=== PATIENT | male | born 1950 | race Caucasian/White ===

== ENCOUNTER 2022-01-04 20:00 | Emergency (ER) | payer MEDICARE ==
[2022-01-04 20:34] VITALS: RESP 16
[2022-01-04 21:38] LABS: Basophils % (A) 0 %; Eosinophils # (A) 0.1 k/uL (0-0.7); Eosinophils % (A) 1 %; HCT 43.2 % (39.0-53.0); HGB 14.7 gm/dL (13.0-17.5); Lymphocytes # (A) 2.5 k/uL (1.0-4.8); Lymphocytes % (A) 29 %; MCH 32.8 pg (25.0-35.0); MCV 96.3 fL (80.0-100.0); Mean Platelet Volume 9.2; Monocytes # (A) 0.7 k/uL (0-1.0); Monocytes % (A) 8 %; Neutrophils # (A) 5.2 k/uL (1.3-7.7); Neutrophils % (A) 59 %; Platelet Count 170 k/uL (150-450); RBC 4.48 m/uL (4.30-5.90); WBC 8.7 k/uL (3.8-10.6)
[2022-01-04 21:47] LABS: Albumin 4.4 g/dL (3.5-5.0); Calcium 10.5 mg/dL (8.4-10.2); Magnesium 1.9 mg/dL (1.6-2.3); Potassium 4.8 mmol/L (3.5-5.1); Total Bilirubin 0.9 mg/dL (0.2-1.3); Total Protein 7.2 g/dL (6.3-8.2)
--- NOTE | 2022-01-04 21:47 | ED ---
URI HPI - General Chief Complaint: Upper Respiratory Infection Stated Complaint: SOB Time Seen by Provider: 01/04/22 20:49 Source: patient, RN notes reviewed Mode of arrival: wheelchair Limitations: no limitations - History of Present Illness Initial Comments: This pleasant 71-year-old male who states he went to urgent care 2 weeks ago and was treated with Zithromax and a five-day course of prednisone. Patient states he had COVID-19 testing done there but was never given the results. Patient states he continues to have a lingering cough and a sensation of shortness of breath since this happened. Patient denying any pain. Denies any fever or ch ills. Mild cough without production. No headache, no fever or chills, no changes in vision or hearing, no sore throat or difficulty with speech, no neck pain, no chest pain or shortness of breath, n o abdominal pain, no nausea or vomiting, no changes in urination or bowel movements, no numbness or tingling, no extremity pain, no skin rashes or lesions. Past medical, surgical, social, and family history reviewed. Nonsmoker, no history of lung pathology. - Related Data Previous Rx's Medication Instructions Recorded Ibuprofen [Motrin] 800 mg PO Q6HR PRN #20 tab 05/05/15 Orphenadrine [Norflex] 100 mg PO Q12H #7 tablet.er 05/05/15 Albuterol Inhaler [Ventolin Hfa 2 puff INHALATION Q4HR PRN #1 each 01/04/22 Inhaler] Allergies Allergy/AdvReac Type Severity Reaction Status Date / Time No Known Allergies Allergy Verified 01/04/22 20:25 Review of Systems ROS Statement: Those systems with pertinent positive or pertinent negative responses have been documented in the HPI. ROS Other: All systems not noted in ROS Statement are negative. Past Medical History Past Medical History: No Reported History History of Any Multi-Drug Resistant Organisms: None Reported Additional Past Surgical History / Comment(s): hernia operation Past Psychological History: No Psychological Hx Reported Smoking Status: Never smoker Past Alcohol Use History: Rare Past Drug Use History: None Reported General Exam - General Exam Comments Initial Comments: Patient does not appear to be in any significant distress. Vital signs stable, patient afebrile. SpO2 on room air is 100%. Limitations: no limitations General appearance: alert, in no apparent distress Head exam: Present: atraumatic, normocephalic, normal inspection Eye exam: Present: normal appearance, PERRL, EOMI. Absent: scleral icterus, conjunctival injection, periorbital swelling ENT exam: Present: normal exam, normal oropharynx, mucous membranes moist, TM's normal bilaterally, normal external ear exam. Absent: mucous membranes dry Neck exam: Present: normal inspection, full ROM. Absent: tenderness, meningismus, lymphadenopathy Respiratory exam: Present: normal lung sounds bilaterally. Absent: respiratory distress, wheezes, rales, rhonchi, stridor, chest wall tenderness, accessory muscle use, decreased breath sounds, prolonged expiratory Cardiovascular Exam: Present: regular rate, normal rhythm, normal heart sounds. Absent: systolic murmur, diastolic murmur, rubs, gallop, clicks GI/Abdominal exam: Present: soft, normal bowel sounds. Absent: distended, tenderness, guarding, rebound, rigid Extremities exam: Present: normal inspection, full ROM, normal capillary refill. Absent: tenderness, pedal edema, joint swelling, calf tenderness Back exam: Present: normal inspection Neurological exam: Present: alert, oriented X3, CN II-XII intact Psychiatric exam: Present: normal affect, normal mood Skin exam: Present: warm, dry, intact, normal color. Absent: rash Course Vital Signs 01/04/22 01/04/22 01/04/22 20:21 20:32 21:29 Temperature 97.3 F L 98.4 F Pulse Rate 69 62 56 L Respiratory 18 16 16 Rate Blood Pressure 134/67 131/68 O2 Sat by Pulse 99 100 98 Oximetry 01/04/22 01/04/22 21:44 22:28 Temperature Pulse Rate 61 60 Respiratory 16 16 Rate Blood Pressure 131/88 117/67 O2 Sat by Pulse 100 Oximetry - Reevaluation(s) Reevaluation #1: 01/04/22 23:40 Reevaluation, patient in no distress, patient's workup is essentially negative. D-dimer also negative. Suspect the patient has postinflammatory lung inflammation. We'll try albuterol inhaler. Patient does inform me he is on lisinopril which she received from the dentist office. Patient currently has no PCP. Patient blood pressure here was normal. I told him that he needs to obtain a primary care physician. Patient concurs. Medical Decision Making - Medical Decision Making Patient's age symptomology we will run a general workup to include chest x-ray, blood work, EKG. Plan for reevaluation and likely discharge. Patient was told to return to the ER for any signs or symptoms worsen. Told to return immediately if any other problems arise. All questions answered. Treatment plan discussed. Patient in agreement Every effort has been made to ensure accuracy of this dictation. However, due to the limitations of electronic medical records and dictation devices, errors in charting still occur. House Calls Nurse Practitioner Dr. Dueñas - Lab Data Result diagrams: 01/04/22 21:28 01/04/22 21:28 Lab Results 01/04/22 01/04/22 01/04/22 Range/Units 20:10 21:28 21:28 WBC 8.7 (3.8-10.6) k/uL RBC 4.48 (4.30-5.90) m/uL Hgb 14.7 (13.0-17.5) gm/dL Hct 43.2 (39.0-53.0) % MCV 96.3 (80.0-100.0) fL MCH 32.8 (25.0-35.0) pg MCHC 34.0 (31.0-37.0) g/dL RDW 12.0 (11.5-15.5) % Plt Count 170 (150-450) k/uL MPV 9.2 Neutrophils % 59 % Lymphocytes % 29 % Monocytes % 8 % Eosinophils % 1 % Basophils % 0 % Neutrophils # 5.2 (1.3-7.7) k/uL Lymphocytes # 2.5 (1.0-4.8) k/uL Monocytes # 0.7 (0-1.0) k/uL Eosinophils # 0.1 (0-0.7) k/uL Basophils # 0.0 (0-0.2) k/uL APTT 26.1 (22.0-30.0) sec D-Dimer 0.25 (<0.60) mg/L FEU Sodium (137-145) mmol/L Potassium (3.5-5.1) mmol/L Chloride (98-107) mmol/L Carbon Dioxide (22-30) mmol/L Anion Gap mmol/L BUN (9-20) mg/dL Creatinine (0.66-1.25) mg/dL Est GFR (CKD-EPI)AfAm (>60 ml/min/1.73 sqM) Est GFR (CKD-EPI)NonAf (>60 ml/min/1.73 sqM) Glucose (74-99) mg/dL Calcium (8.4-10.2) mg/dL Magnesium (1.6-2.3) mg/dL Total Bilirubin (0.2-1.3) mg/dL AST (17-59) U/L ALT (4-49) U/L Alkaline Phosphatase (38-126) U/L Troponin I (0.000-0.034) ng/mL NT-Pro-B Natriuret Pep pg/mL Total Protein (6.3-8.2) g/dL Albumin (3.5-5.0) g/dL Coronavirus (PCR) Not Detected (Not Detectd) 01/04/22 01/04/22 01/04/22 Range/Units 21:28 21:28 21:28 WBC (3.8-10.6) k/uL RBC (4.30-5.90) m/uL Hgb (13.0-17.5) gm/dL Hct (39.0-53.0) % MCV (80.0-100.0) fL MCH (25.0-35.0) pg MCHC (31.0-37.0) g/dL RDW (11.5-15.5) % Plt Count (150-450) k/uL MPV Neutrophils % % Lymphocytes % % Monocytes % % Eosinophils % % Basophils % % Neutrophils # (1.3-7.7) k/uL Lymphocytes # (1.0-4.8) k/uL Monocytes # (0-1.0) k/uL Eosinophils # (0-0.7) k/uL Basophils # (0-0.2) k/uL APTT (22.0-30.0) sec D-Dimer (<0.60) mg/L FEU Sodium 137 (137-145) mmol/L Potassium 4.8 (3.5-5.1) mmol/L Chloride 102 (98-107) mmol/L Carbon Dioxide 26 (22-30) mmol/L Anion Gap 9 mmol/L BUN 15 (9-20) mg/dL Creatinine 0.99 (0.66-1.25) mg/dL Est GFR (CKD-EPI)AfAm 89 (>60 ml/min/1.73 sqM) Est GFR (CKD-EPI)NonAf 77 (>60 ml/min/1.73 sqM) Glucose 87 (74-99) mg/dL Calcium 10.5 H (8.4-10.2) mg/dL Magnesium 1.9 (1.6-2.3) mg/dL Total Bilirubin 0.9 (0.2-1.3) mg/dL AST 40 (17-59) U/L ALT 17 (4-49) U/L Alkaline Phosphatase 68 (38-126) U/L Troponin I <0.012 (0.000-0.034) ng/mL NT-Pro-B Natriuret Pep 32 pg/mL Total Protein 7.2 (6.3-8.2) g/dL Albumin 4.4 (3.5-5.0) g/dL Coronavirus (PCR) (Not Detectd) - EKG Data -: EKG Interpreted by Me (EKG done at 2121 revealed sinus bradycardia with a rate of 55. ) - Radiology Data Radiology results: report reviewed, image reviewed Disposition Clinical Impression: Shortness of breath Narrative: Postviral lung inflammation Disposition: HOME SELF-CARE Condition: Good Instructions (If sedation given, give patient instructions): Acute Bronchitis (ED) Additional Instructions: Follow-up with your regular physician as directed. Return to the ER immediately if any symptoms worsen, new symptoms arise, or any other problems develop. Albuterol, 2 puffs every 4 hours as needed. Make sure you call in the morning to schedule an appointment with the primary care physician. Is patient prescribed a controlled substance at d/c from ED?: No Referrals: None,Stated [Primary Care Provider] - 1-2 days Time of Disposition: 23:42
[2022-01-04 21:59] LABS: Partial Thromboplastin Time 26.1 sec (22.0-30.0)
--- NOTE | 2022-01-04 22:10 | XR ---
EXAMINATION TYPE: XR chest 1V portable DATE OF EXAM: 01/04/2022 9:41 PM COMPARISON: None TECHNIQUE: XR chest 1V portable Frontal view of the chest. CLINICAL INDICATION:Male, 71 years old with history of Dyspnea; FINDINGS: Lungs/Pleura: There is no evidence of pleural effusion, focal consolidation, or pneumothorax. Pulmonary vascularity: Unremarkable. Heart/mediastinum: Cardiomediastinal silhouette is unremarkable. Musculoskeletal: No acute osseous pathology. IMPRESSION: No acute cardiopulmonary disease/process.
[2022-01-04 22:29] VITALS: PULSE 60
[2022-01-04 23:48] VITALS: BP 125/78; TEMP 98
== END 2022-01-04 23:48 | disposition home or self-care (01) ==
LOC: EC 20:00
DX: R06.02 Shortness of breath (principal); Z79.51 Long term (current) use of inhaled steroids; Z20.822 Contact with and (suspected) exposure to COVID-19
CPT/HCPCS: 36415; 71045; 80053; 83735; 83880; 84484; 85025; 85379; 85730; 87635; 93005; 99285

== ENCOUNTER 2022-01-31 15:15 | Inpatient (IN) | payer MEDICARE ==
--- NOTE | 2022-01-31 15:38 | ED ---
General Adult HPI - General Chief complaint: Chest Pain Stated complaint: chest pain Time Seen by Provider: 01/31/22 15:21 Source: patient, RN notes reviewed Mode of arrival: EMS Limitations: no limitations - History of Present Illness Initial comments: Patient is a pleasant 71-year-old male presenting to the emergency department with concerns with chest discomfort. Onset of symptoms was around 9:00 this morning and was somewhat severe at that time rated around 8/10. Discomfort has improved and is currently rated 4/10. Patient did receive aspirin and nitroglycerin by EMS with some improvement of symptoms. Patient did feel sweaty. Discomfort felt like tightness or burning. Patient did have associated dyspnea. Those symptoms have all improved. No nausea or vomiting. No history of similar symptoms previously - Related Data Previous Rx's Medication Instructions Recorded Ibuprofen [Motrin] 800 mg PO Q6HR PRN #20 tab 05/05/15 Orphenadrine [Norflex] 100 mg PO Q12H #7 tablet.er 05/05/15 Albuterol Inhaler [Ventolin Hfa 2 puff INHALATION Q4HR PRN #1 each 01/04/22 Inhaler] Allergies Allergy/AdvReac Type Severity Reaction Status Date / Time No Known Allergies Allergy Verified 01/31/22 15:24 Review of Systems ROS Statement: Those systems with pertinent positive or pertinent negative responses have been documented in the HPI. ROS Other: All systems not noted in ROS Statement are negative. Constitutional: Denies: fever Eyes: Denies: eye pain ENT: Denies: ear pain Respiratory: Reports: as per HPI. Denies: cough Cardiovascular: Reports: as per HPI, chest pain Endocrine: Denies: fatigue Gastrointestinal: Denies: abdominal pain, vomiting Genitourinary: Denies: dysuria Musculoskeletal: Denies: back pain Skin: Denies: rash Neurological: Denies: weakness Past Medical History Past Medical History: Hypertension History of Any Multi-Drug Resistant Organisms: None Reported Additional Past Surgical History / Comment(s): hernia operation Past Psychological History: No Psychological Hx Reported Smoking Status: Never smoker Past Alcohol Use History: Rare Past Drug Use History: None Reported General Exam Limitations: no limitations General appearance: alert, in no apparent distress Head exam: Present: normocephalic Eye exam: Present: normal appearance Neck exam: Present: normal inspection Respiratory exam: Present: normal lung sounds bilaterally. Absent: chest wall tenderness Cardiovascular Exam: Present: regular rate, normal rhythm, normal heart sounds Expanded Peripheral pulses: 2+: Radial (R), Radial (L), Posterior Tibialis (R), Posterior Tibialis (L) GI/Abdominal exam: Present: soft. Absent: tenderness Extremities exam: Present: normal inspection. Absent: pedal edema, calf tenderness Neurological exam: Present: alert Psychiatric exam: Present: normal affect, normal mood Skin exam: Present: normal color Course Vital Signs 01/31/22 01/31/22 01/31/22 15:16 15:26 16:06 Temperature 98.5 F Pulse Rate 60 61 Pulse Rate [ 60 Lace Cutter ] Respiratory 18 18 Rate Blood Pressure 134/76 134/74 O2 Sat by Pulse 98 96 Oximetry 01/31/22 01/31/22 16:11 16:14 Temperature Pulse Rate 62 60 Pulse Rate [ Lace Cutter ] Respiratory 18 18 Rate Blood Pressure 130/71 134/72 O2 Sat by Pulse 97 97 Oximetry - Reevaluation(s) Reevaluation #1: 01/31/22 15:42 Cardiology has been paged. 01/31/22 15:46 Repeat EKG shows atrial rhythm rate 83. Left axis. Right bundle branch block appearance. Septal Q waves. Nonspecific ST-T. Interpreted by myself. 01/31/22 16:04 Case was again discussed with cardiology who did review EKGs and will take patient to the Mortgage Coordinator. 01/31/22 16:22 Dr. Quinn has been paged for admission. EKG Findings - EKG Results: EKG: interpreted by ERMD (Left axis. Low QRS voltage. Inferior Q waves with borderline ST change.), sinus rhythm Medical Decision Making - Lab Data Result diagrams: 01/31/22 15:41 01/31/22 15:41 Lab Results 01/31/22 01/31/22 01/31/22 Range/Units 15:41 15:41 15:41 WBC 6.2 (3.8-10.6) k/uL RBC 4.17 L (4.30-5.90) m/uL Hgb 13.6 (13.0-17.5) gm/dL Hct 39.3 (39.0-53.0) % MCV 94.1 (80.0-100.0) fL MCH 32.5 (25.0-35.0) pg MCHC 34.6 (31.0-37.0) g/dL RDW 12.5 (11.5-15.5) % Plt Count 147 L (150-450) k/uL MPV 9.4 Neutrophils % 69 % Lymphocytes % 18 % Monocytes % 9 % Eosinophils % 1 % Basophils % 0 % Neutrophils # 4.3 (1.3-7.7) k/uL Lymphocytes # 1.1 (1.0-4.8) k/uL Monocytes # 0.6 (0-1.0) k/uL Eosinophils # 0.1 (0-0.7) k/uL Basophils # 0.0 (0-0.2) k/uL PT 10.7 (9.0-12.0) sec INR 1.0 (<1.2) APTT 25.9 (22.0-30.0) sec D-Dimer 0.26 (<0.60) mg/L FEU Sodium 137 (137-145) mmol/L Potassium 4.5 (3.5-5.1) mmol/L Chloride 107 (98-107) mmol/L Carbon Dioxide 24 (22-30) mmol/L Anion Gap 6 mmol/L BUN 17 (9-20) mg/dL Creatinine 0.81 (0.66-1.25) mg/dL Est GFR (CKD-EPI)AfAm >90 (>60 ml/min/1.73 sqM) Est GFR (CKD-EPI)NonAf >90 (>60 ml/min/1.73 sqM) Glucose 109 H (74-99) mg/dL Calcium 10.2 (8.4-10.2) mg/dL Magnesium 1.8 (1.6-2.3) mg/dL Total Bilirubin 0.8 (0.2-1.3) mg/dL AST 28 (17-59) U/L ALT 13 (4-49) U/L Alkaline Phosphatase 78 (38-126) U/L Troponin I (0.000-0.034) ng/mL NT-Pro-B Natriuret Pep pg/mL Total Protein 6.7 (6.3-8.2) g/dL Albumin 4.1 (3.5-5.0) g/dL 01/31/22 01/31/22 Range/Units 15:41 15:41 WBC (3.8-10.6) k/uL RBC (4.30-5.90) m/uL Hgb (13.0-17.5) gm/dL Hct (39.0-53.0) % MCV (80.0-100.0) fL MCH (25.0-35.0) pg MCHC (31.0-37.0) g/dL RDW (11.5-15.5) % Plt Count (150-450) k/uL MPV Neutrophils % % Lymphocytes % % Monocytes % % Eosinophils % % Basophils % % Neutrophils # (1.3-7.7) k/uL Lymphocytes # (1.0-4.8) k/uL Monocytes # (0-1.0) k/uL Eosinophils # (0-0.7) k/uL Basophils # (0-0.2) k/uL PT (9.0-12.0) sec INR (<1.2) APTT (22.0-30.0) sec D-Dimer (<0.60) mg/L FEU Sodium (137-145) mmol/L Potassium (3.5-5.1) mmol/L Chloride (98-107) mmol/L Carbon Dioxide (22-30) mmol/L Anion Gap mmol/L BUN (9-20) mg/dL Creatinine (0.66-1.25) mg/dL Est GFR (CKD-EPI)AfAm (>60 ml/min/1.73 sqM) Est GFR (CKD-EPI)NonAf (>60 ml/min/1.73 sqM) Glucose (74-99) mg/dL Calcium (8.4-10.2) mg/dL Magnesium (1.6-2.3) mg/dL Total Bilirubin (0.2-1.3) mg/dL AST (17-59) U/L ALT (4-49) U/L Alkaline Phosphatase (38-126) U/L Troponin I 0.071 H* (0.000-0.034) ng/mL NT-Pro-B Natriuret Pep 81 pg/mL Total Protein (6.3-8.2) g/dL Albumin (3.5-5.0) g/dL - Radiology Data Interpreted by me: Chest x-ray reveals no acute process Critical Care Time Critical Care Time: Yes Total Critical Care Time: 31 Disposition Clinical Impression: ST elevation myocardial infarction (STEMI) Disposition: ADMITTED IP TO THIS HOSP Condition: Serious Is patient prescribed a controlled substance at d/c from ED?: No Time of Disposition: 16:23
[2022-01-31] MEDS ORDERED: NITROGLYCERIN SL TABS 0.4 MG TAB SUBLINGUAL STA ×2 (15:39)
[2022-01-31] MEDS ORDERED: ASPIRIN 81 MG PO STA (15:39)
[2022-01-31 15:45] LABS: Basophils % (A) 0 %; Eosinophils # (A) 0.1 k/uL (0-0.7); Eosinophils % (A) 1 %; HCT 39.3 % (39.0-53.0); HGB 13.6 gm/dL (13.0-17.5); Lymphocytes # (A) 1.1 k/uL (1.0-4.8); Lymphocytes % (A) 18 %; MCH 32.5 pg (25.0-35.0); MCHC 34.6 g/dL (31.0-37.0); MCV 94.1 fL (80.0-100.0); Mean Platelet Volume 9.4; Monocytes # (A) 0.6 k/uL (0-1.0); Monocytes % (A) 9 %; Neutrophils # (A) 4.3 k/uL (1.3-7.7); Neutrophils % (A) 69 %; Platelet Count 147 k/uL (150-450); RBC 4.17 m/uL (4.30-5.90); RDW 12.5 % (11.5-15.5); WBC 6.2 k/uL (3.8-10.6)
[2022-01-31 15:57] LABS: ALT 13 U/L (4-49); AST 28 U/L (17-59); African American GFR (CKD) >90 (>60 ml/min/1.73 sqM); Albumin 4.1 g/dL (3.5-5.0); Alkaline Phosphatase 78 U/L (38-126); Anion Gap 6 mmol/L; Blood Urea Nitrogen 17 mg/dL (9-20); Calcium 10.2 mg/dL (8.4-10.2); Carbon Dioxide 24 mmol/L (22-30); Chloride 107 mmol/L (98-107); Glucose 109 mg/dL (74-99); Magnesium 1.8 mg/dL (1.6-2.3); Non-African American GFR(CKD) >90 (>60 ml/min/1.73 sqM); Potassium 4.5 mmol/L (3.5-5.1); Sodium 137 mmol/L (137-145); Total Bilirubin 0.8 mg/dL (0.2-1.3); Total Protein 6.7 g/dL (6.3-8.2)
[2022-01-31 15:59] LABS: Partial Thromboplastin Time 25.9 sec (22.0-30.0); Prothrombin Time 10.7 sec (9.0-12.0)
--- NOTE | 2022-01-31 16:01 | XR ---
EXAMINATION TYPE: XR chest 1V portable DATE OF EXAM: 01/31/2022 COMPARISON: Prior chest x-ray January 04, 2022 HISTORY: Chest pain. TECHNIQUE: Single AP portable frontal upright view of the chest is obtained. FINDINGS: There is no suspicious new focal air space opacity, pleural effusion, or pneumothorax seen . The cardiac silhouette size is stable and within normal limits. Possible mild underlying emphysema tous change. 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 IMPRESSION: No acute process.
[2022-01-31] MEDS ORDERED: NITROGLYCERIN SL TABS 0.4 MG TAB SUBLINGUAL PRN (16:05)
[2022-01-31] MEDS ORDERED: HEPARIN SODIUM 1,000 UN/ML (10ML VL) IV ONE ×2 (16:05→16:43)
[2022-01-31] MEDS ORDERED: HEPARIN SODIUM 1,000 UN/ML (10ML VL) IV PRN (16:05)
[2022-01-31] MEDS ORDERED: HEPARIN SOD,PORK IN 0.45% NACL 25,000 UNIT in 0.45% NACL 1 250ML.BAG IV SCH (16:15)
[2022-01-31] MEDS ORDERED: LIDOCAINE 1% INJ 10MG/ML (5 ML VIAL-PF) SQ ONE (16:29)
[2022-01-31] MEDS ORDERED: SODIUM CHLORIDE 0.9% 1,000 ML IV ONE (16:30)
[2022-01-31] MEDS ORDERED: fentaNYL (PF) 50 MCG/1 ML VIAL IV ONE ×2 (16:31→16:32)
[2022-01-31] MEDS ORDERED: MIDAZOLAM 2 MG/2 ML VIAL IV ONE (16:31)
[2022-01-31] MEDS ORDERED: fentaNYL (PF) 50 MCG/ML 2 ML AMP ONE (16:32)
[2022-01-31] MEDS ORDERED: VERAPAMIL SYRINGE (5 MG/10 ML) INTRAARTER ONE (16:39)
[2022-01-31] MEDS ORDERED: HEPARIN SODIUM 1,000 UN/ML (10ML VL) ONE (16:43)
[2022-01-31] MEDS ORDERED: NITROGLYCERIN 1000MCG/10ML SYRINGE INTRAARTER ONE ×3 (17:00→17:21)
[2022-01-31] MEDS ORDERED: IOPAMIDOL-370 100ML BTL INJ ONE ×2 (17:03→17:26)
[2022-01-31] MEDS ORDERED: TICAGRELOR 90 MG TAB PO ONE (17:03)
[2022-01-31] MEDS ORDERED: TICAGRELOR 90 MG TAB ONE (17:04)
[2022-01-31] MEDS ORDERED: HEPARIN SODIUM 1,000 UN/ML (10ML VL) IVP ONE ×2 (17:05→17:11)
[2022-01-31] MEDS ORDERED: ATROPINE SULFATE 0.1 MG/ML 10ML SYRINGE IV PRN (17:28)
[2022-01-31] MEDS ORDERED: RX INFO: IV CONTRAST WAS GIVEN 1 EACH MISC MISCELLANE PRN (17:28)
[2022-01-31] MEDS ORDERED: MAG HYDROX/AL HYDROX/SIMETH 30 ML CUP PO PRN (17:28)
[2022-01-31] MEDS ORDERED: ZOLPIDEM 5 MG TAB PO PRN (17:28)
--- NOTE | 2022-01-31 17:34 | P.PRCINT ---
Percutaneous Coronary Int. - Percutaneous Coronary Intervention Percutaneous Coronary Intervention: PROCEDURES PERFORMED: Left coronary angiography, PCI mid LAD with a 2.5 x 15mm Xience LIZBETH, post dilated with a 2.75NC balloon INDICATION: Non-STEMI PROCEDURE: After the risks, benefits and alternatives of the above mentioned procedure explained in detail with the patient, informed consent was obtained. Patient had already been taken to the catheterization lab and prepped and draped in usual fashion. A 6-Gambian sheath had already been placed in the right radial artery. The decision was made to perform PCI of the LAD. A 6-Gambian CLS 3.5 guide was used to engage the left main. Heparin was given for ACT greater than 250. A 0.014 BMW wire was grandson to the distal LAD. Predilation was performed with a 2.5 x 12 mm balloon. Next a 2.5 x 15mm Xience LIZBETH was placed in the mid LAD. The proximal portion of the stent was postdilated with a 2.75 noncompliant balloon. The wire was pulled and final angiograms were performed. Preintervention there is 95% stenosis with JAI 2 flow and postintervention there was 0% stenosis and JAI-3 flow. The right radial sheath was removed and a TR band was placed with hemostasis achieved. The patient tolerated the procedure well. Patient was transported back to the post catheterization holding area in stable condition. Conscious Sedation: Patient was monitored under the direct supervision of vision of myself for conscious sedation using Versed and fentanyl for a total duration of 26 minutes HEMODYNAMICS: Aorta: 92/64 SELECTIVE CORONARY ARTERIOGRAPHY: LEFT MAIN: The left main is a large caliber vessel which bifurcates into the LAD and circumflex. There is no significant stenosis. LEFT ANTERIOR DESCENDING CORONARY ARTERY: LAD is a large caliber vessel which wraps around to the apex. There are mild luminal irregularities and a 95% mid LAD stenosis with JAI 2 flow. LEFT CIRCUMFLEX CORONARY ARTERY: Left circumflex is a moderate caliber vessel without significant stenosis. RIGHT CORONARY ARTERY: The right coronary artery was not imaged, see separate diagnostic report. FINAL IMPRESSION: 1. CAD as described above with 95% mid LAD stenosis and otherwise mild luminal irregularities 2. S/p PCI mid LAD with a 2.5 x 15mm Xience LIZBETH, post dilated with a 2.75NC balloon PLAN: 1. Aggressive risk factor modification per most recent ACC/AHA guidelines. 2. Continue dual antiplatelets with aspirin and Brillinta for 12 months.
[2022-01-31 17:53] LABS: Glucose,Whole Blood 80 mg/dL (70-110)
[2022-01-31] MEDS: SODIUM CHLORIDE 0.9% 1,000 ML in EMPTY BAG 1 BAG IV SCH (18:08)
[2022-01-31] MEDS: NITROGLYCERIN OINT 1 INCH/GM PACKET TOPICAL SCH (18:08)
[2022-01-31] MEDS: ATORVASTATIN 80 MG TAB PO SCH (18:08)
[2022-01-31] MEDS ORDERED: ONDANSETRON 4 MG/2 ML VIAL IVP PRN (20:08)
[2022-01-31] MEDS: ACETAMINOPHEN TAB 325 MG TAB PO PRN (20:30)
[2022-01-31] MEDS ORDERED: DEXMEDETOMIDINE/0.9% NACL(PMX) 400 MCG in EMPTY BAG 1 BAG IV SCH (20:30)
[2022-01-31] MEDS: TICAGRELOR 90 MG TAB PO SCH (20:33)
[2022-01-31] MEDS: METOPROLOL TARTRATE 25 MG TAB PO SCH (20:34)
[2022-01-31] MEDS ORDERED: ALBUTEROL NEBULIZED 2.5 MG/3 ML INHALATION PRN (21:48)
--- NOTE | 2022-01-31 22:29 | CC ---
CARDIAC CATHETERIZATION REPORT INDICATIONS: Acute coronary syndrome. HISTORY OF PRESENT ILLNESS: This is a 71-year-old gentleman with history of hypertension who does not see a physician on a regular basis and does not take any medications regularly, came in to hospital with chest pain and 1 of the EKGs revealed ST-segment elevation in leads 3 and the second EKG showed a right bundle-branch block with intraventricular conduction delay. Because of this, a diagnosis of acute coronary syndrome was made and the patient was advised to undergo emergent cardiac catheterization. He had been explained of risks, benefits and alternatives, understood and accepted. PROCEDURE NOTE: After obtaining informed consent, left heart catheterization, coronary angiogram are performed via the right radial artery using 3-1/2 left Russ, size 4 right Russ catheters. Hemodynamics will be obtained by the lpta. The patient received 5 mg of verapamil and 5000 units of heparin per protocol. I was told the patient did not receive any heparin in the emergency room. The patient received moderate conscious sedation. Total sedation time was 27 minutes. Right radial artery access was obtained using Seldinger technique, and a 6-Indian sheath was placed and catheters and wires were floated into the ascending aorta under fluoroscopic guidance. FINDINGS: 1. Hemodynamics: Left ventricular end-diastolic pressure is 11 mm. There is no significant gradient across the aortic valve. 2. Left Ventriculogram: Left ventriculogram is not performed. 3. Angiographic Data: a.Left Main Coronary Artery: Left main coronary artery is a normal-sized vessel and is free of stenosis. Divides into left anterior descending coronary artery and circumflex coronary artery. Mid LAD shows a focal 90% stenosis. Circumflex coronary artery and its branches are free of significant disease. b.Right coronary artery was subselectively engaged, appears like a large dominant vessel without significant stenosis. CONCLUSIONS: Focal 95% stenosis involving mid LAD. PLAN: Patient will undergo angioplasty with stent placement of the same by Dr. Hackett. MMODL / IJN: [id number] /
[2022-02-01] MEDS: NITROGLYCERIN OINT 1 INCH/GM PACKET TOPICAL SCH ×5 (04:07→23:13)
[2022-02-01] MEDS: SODIUM CHLORIDE 0.9% 1,000 ML in EMPTY BAG 1 BAG IV SCH (06:04)
[2022-02-01 07:44] LABS: Basophils % (A) 0 %; Eosinophils # (A) 0.1 k/uL (0-0.7); Eosinophils % (A) 1 %; HCT 41.6 % (39.0-53.0); HGB 13.8 gm/dL (13.0-17.5); Lymphocytes # (A) 1.5 k/uL (1.0-4.8); Lymphocytes % (A) 23 %; MCH 32.8 pg (25.0-35.0); MCHC 33.2 g/dL (31.0-37.0); MCV 98.9 fL (80.0-100.0); Mean Platelet Volume 9.1; Monocytes # (A) 0.7 k/uL (0-1.0); Monocytes % (A) 11 %; Neutrophils # (A) 4.1 k/uL (1.3-7.7); Neutrophils % (A) 62 %; Platelet Count 142 k/uL (150-450); RBC 4.21 m/uL (4.30-5.90); RDW 12.2 % (11.5-15.5); WBC 6.6 k/uL (3.8-10.6)
[2022-02-01 07:54] LABS: African American GFR (CKD) >90 (>60 ml/min/1.73 sqM); Non-African American GFR(CKD) >90 (>60 ml/min/1.73 sqM)
[2022-02-01 07:58] LABS: Prothrombin Time 10.8 sec (9.0-12.0)
[2022-02-01] MEDS: ASPIRIN 81 MG PO SCH (08:38)
[2022-02-01] MEDS: METOPROLOL TARTRATE 25 MG TAB PO SCH ×2 (08:38→19:59)
[2022-02-01] MEDS: TICAGRELOR 90 MG TAB PO SCH ×2 (08:38→19:59)
[2022-02-01] MEDS: lisinopriL 10 MG TAB PO SCH (08:38)
[2022-02-01] MEDS: HEPARIN SODIUM,PORCINE/PF 5,000 UNIT/0.5 ML SYRINGE SQ SCH ×2 (08:39→19:59)
[2022-02-01] MEDS: ATORVASTATIN 80 MG TAB PO SCH (08:39)
[2022-02-01] MEDS ORDERED: FAMOTIDINE 20 MG/2 ML VIAL IV SCH (09:00)
[2022-02-01] MEDS ORDERED: ASPIRIN 325 MG TAB PO SCH (09:00)
--- NOTE | 2022-02-01 09:23 | P.HPIM ---
History of Present Illness This is a pleasant 71 years old male with past medical history of hypertension Presents yesterday because of dyspnea and chest pain.. He has history of recent covid infection about 3 weeks ago. The presents because of chest tightness and burning chest pain over 2 days duration slowly gotten worse so yesterday he decided to come to the hospital Patient underwent emergent cardiac cath and PCI placed to LAD Currently patient denies chest pain or dyspnea, no headache, weakness or numbness, no diarrhea or vomiting or abdominal pain, no dysuria or change in frequency However yesterday he underwent straight cath and a little urine output was obtained. He does not have any Israel. Vital signs stable Labs unremarkable including CBC, INR, BMP, liver enzymes. D-dimer -0.26. Troponin elevated at 0.07, 2.9, 7.2. EKG showing ectopic atrial rhythm at 83 Chest x-ray: No acute process. Patient underwent emergent cardiac cath with PCI to LAD Review of Systems Review of systems CONSTITUTIONAL: No fever, no malaise, no fatigue. HEENT: No recent visual problems or hearing problems. Denied any sore throat. CARDIOVASCULAR: No orthopnea, PND, no palpitations, no syncope. PULMONARY: No shortness of breath, no cough, no hemoptysis. GASTROINTESTINAL: No diarrhea, no nausea, no vomiting, no abdominal pain. Normoactive bowel sounds. NEUROLOGICAL: No headaches, no weakness, no numbness. HEMATOLOGICAL: Denies any bleeding or petechiae. GENITOURINARY: Denies any burning micturition, frequency, or urgency. MUSCULOSKELETAL/RHEUMATOLOGICAL: Denies any joint pain, swelling, or any muscle pain. ENDOCRINE: Denies any polyuria or polydipsia. Past Medical History Past Medical History: Hypertension History of Any Multi-Drug Resistant Organisms: None Reported Past Surgical History: Hernia Repair Additional Past Surgical History / Comment(s): hernia operation Past Psychological History: No Psychological Hx Reported Smoking Status: Never smoker Past Alcohol Use History: Rare Past Drug Use History: None Reported Medications and Allergies Home Medications Medication Instructions Recorded Confirmed Type Albuterol Inhaler [Ventolin Hfa 2 puff INHALATION RT-Q4H PRN 01/31/22 01/31/22 History Inhaler] lisinopriL [Zestril] 10 mg PO DAILY 01/31/22 01/31/22 History Allergies Allergy/AdvReac Type Severity Reaction Status Date / Time No Known Allergies Allergy Verified 01/31/22 15:24 Physical Exam Vitals: Vital Signs Temp Pulse Pulse Pulse Resp BP Pulse Ox 02/01/22 08:00 97.9 F 68 18 126/84 95 02/01/22 07:33 98 02/01/22 07:30 68 14 126/84 97 02/01/22 07:00 56 L 17 126/75 95 02/01/22 06:30 52 L 21 126/75 94 L 02/01/22 06:00 46 L 22 162/81 97 02/01/22 05:30 48 L 24 162/81 98 02/01/22 05:00 47 L 20 98 02/01/22 04:30 42 L 21 124/69 96 02/01/22 04:00 98.1 F 43 L 23 95 02/01/22 03:38 50 L 18 02/01/22 03:30 45 L 19 130/62 94 L 02/01/22 03:00 49 L 18 147/71 02/01/22 02:30 51 L 27 H 98 02/01/22 02:00 49 L 19 96 02/01/22 01:30 49 L 17 142/74 95 02/01/22 01:00 48 L 15 149/67 95 02/01/22 00:30 44 L 20 96 02/01/22 00:05 45 L 18 149/67 93 L 02/01/22 00:00 98.0 F 46 L 15 94 L 01/31/22 23:59 49 L 20 01/31/22 23:30 46 L 13 147/73 95 01/31/22 23:00 49 L 15 94 L 01/31/22 22:30 143/76 99 01/31/22 22:00 52 L 14 146/78 98 01/31/22 21:45 47 L 36 H 146/78 96 01/31/22 21:30 53 L 16 146/78 96 01/31/22 21:15 48 L 18 146/78 95 01/31/22 21:00 52 L 15 146/78 95 01/31/22 20:45 53 L 18 146/78 97 01/31/22 20:30 53 L 8 L 146/78 98 01/31/22 20:15 51 L 23 146/78 99 01/31/22 20:00 55 L 52 L 25 H 132/73 01/31/22 19:45 53 L 21 132/73 97 01/31/22 19:30 50 L 26 H 132/73 98 01/31/22 19:15 52 L 17 132/73 98 01/31/22 19:00 53 L 12 122/69 98 01/31/22 18:45 56 L 26 H 99 01/31/22 18:30 55 L 12 99 01/31/22 18:15 65 12 99 01/31/22 18:00 98 F 56 L 12 119/67 98 01/31/22 17:52 98 F 18 98 01/31/22 17:50 58 L 12 01/31/22 17:48 56 L 10 L 01/31/22 16:14 60 18 134/72 97 01/31/22 16:11 62 18 130/71 97 01/31/22 16:06 61 18 134/74 96 01/31/22 15:26 60 01/31/22 15:16 98.5 F 60 18 134/76 98 Intake and Output 01/31/22 02/01/22 02/01/22 22:59 06:59 14:59 Intake Total 1450 675 75 Output Total 1150 0 Balance 1450 -475 75 Intake: IV 1450 675 75 Sodium Chloride 0.9% 1, 450 675 75 000 ml @ 0 mls/hr IV .[facility] -[facility] Rx#:[id number] Output: Urine 1150 0 Other: Voiding Method Urinal Urinal # Bowel Movements 1 Weight 105.233 kg 105.1 kg Results CBC & Chem 7: 02/01/22 06:43 02/01/22 06:43 Labs: Abnormal Lab Results - Last 24 Hours (Table) 01/31/22 01/31/22 01/31/22 Range/Units 15:41 15:41 15:41 RBC 4.17 L (4.30-5.90) m/uL Plt Count 147 L (150-450) k/uL Glucose 109 H (74-99) mg/dL Troponin I 0.071 H* (0.000-0.034) ng/mL 01/31/22 01/31/22 02/01/22 Range/Units 18:25 21:47 06:43 RBC 4.21 L (4.30-5.90) m/uL Plt Count 142 L (150-450) k/uL Glucose (74-99) mg/dL Troponin I 2.940 H* 7.280 H* (0.000-0.034) ng/mL Thrombosis Risk Factor Assmnt - Choose All That Apply Any of the Below Risk Factors Present?: Yes Each Factor Represents 1 point: Obesity (BMI >25) Other Risk Factors: Yes Each Risk Factor Represents 2 Points: Age 61-74 years Other congenital or acquired thrombophilia - If yes, enter type in comment: No Thrombosis Risk Factor Assessment Total Risk Factor Score: 3 Thrombosis Risk Factor Assessment Level: Moderate Risk Assessment and Plan Assessment: Acute non-STEMI status post cardiac cath and PCI to LAD Hypertension Recent Covid infection with no pneumonia or hypoxia Plan: Continue with dual antiplatelet therapy with aspirin and brillinta Continue with metoprolol and lisinopril Continue with statin Cardiology consult on the case Check bladder scan Labs and medication were reviewed.. Continue same treatment. Continue with symptomatic treatment. Resume home medication. Monitor labs and vitals. DVT and GI prophylaxis. Further recommendations as per clinical course of the patient DVT prophylaxis: Subcutaneous heparin GI Prophylaxis: Pepcid
--- NOTE | 2022-02-01 10:09 | CONS ---
CONSULTATION CHIEF COMPLAINT: Chest pain. HISTORY OF PRESENT ILLNESS: This is a 71-year-old gentleman with history of hypertension, who does not see a physician on a regular basis, came to hospital complaining of chest discomfort. He had intermittent episodes of precordial chest pressure that radiated across the chest. The onset of symptoms was around 9 o'clock in the morning and initially, it was 8/10 and subsequently, it became 4/10. His EKG on initial presentation showed an ST-segment elevation in lead aVF, and subsequent EKG showed ectopic atrial rhythm with right bundle branch block and left anterior fascicular block. Due to these dynamic EKG changes, I advised the patient to undergo emergent cardiac catheterization with a view to performing angioplasty. He does not exactly meet the criteria for ST-segment elevation ND. The first set of troponin was 0.07 with a diagnosis of acute non-ST segment elevation ND, and because of persistent chest pain, he was moved to the photo lab technician emergently to proceed with cardiac catheterization. MEDICATIONS AT HOME: 1. Lisinopril 10. 2. Albuterol. ALLERGIES: There are no known drug allergies. FAMILY HISTORY: Negative for premature coronary artery disease. SOCIAL HISTORY: Negative for current smoking, EtOH abuse, or drug abuse. REVIEW OF SYSTEMS: 14 out of 14 review of systems has been performed, pertinence are as documented. PHYSICAL EXAMINATION: GENERAL: Comfortable at rest. VITAL SIGNS: Stable. NECK: There is no jugular venous distention. Carotid upstroke is normal. There is no bruit. CHEST: Reveals good air entry bilaterally. HEART: Reveals first and second heart sounds. No gallop. No murmur. No rub. ABDOMEN: Soft, nontender. EXTREMITIES: Did not reveal any edema. Peripheral pulses are felt. LABORATORY DATA: Labs show that the hemoglobin is 13.8, platelet count is 140. Creatinine is 0.7. Troponins are elevated at 0.07, 2.9, and 7.2. AST and ALT are within normal limits. ASSESSMENT: Acute non-ST segment elevation myocardial infarction. PLAN: The patient will undergo emergent cardiac catheterization. CLAUDIA / LATOYA: [id number] /
[2022-02-01 11:23] LABS: Chol/HDL Ratio 4.69 Ratio; LDL Cholesterol,Calculated 94.6 mg/dL (0.0-131.0)
--- NOTE | 2022-02-01 12:22 | PN ---
PROGRESS NOTE SUBJECTIVE: Tylor is a 71-year-old gentleman, that is admitted to hospital with acute non-ST segment elevation [place] and underwent angioplasty of the LAD. This morning, he is doing well and is free of symptoms. OBJECTIVE: GENERAL: Comfortable at rest. VITAL SIGNS: Stable. NECK: There is no jugular venous distention. Carotid upstroke is normal. There is no bruit. CHEST: Reveals good air entry bilaterally. HEART: Reveals first and second heart sounds. No gallop. ABDOMEN: Soft. EXTREMITIES: Did not reveal any edema. Peripheral pulses are felt. LABORATORY DATA: Lab shows that the troponin is 0.07, 2.9, and 7.2. ASSESSMENT: Acute non-ST segment elevation myocardial infarction. PLAN: The patient will continue with current medical therapy, will be transferred out of ICU. Obtain a 2D echo. Hopefully, home in the next 48 hours. MMBASIA / LATOYA: [id number] /
[2022-02-01] MEDS: FAMOTIDINE 20 MG TAB PO SCH (19:59)
[2022-02-02] MEDS: ACETAMINOPHEN TAB 325 MG TAB PO PRN ×2 (04:00→16:13)
[2022-02-02] MEDS: NITROGLYCERIN OINT 1 INCH/GM PACKET TOPICAL SCH (07:20)
[2022-02-02 08:18] VITALS: BMI 28.9
[2022-02-02] MEDS: ASPIRIN 81 MG PO SCH (09:12)
[2022-02-02] MEDS: HEPARIN SODIUM,PORCINE/PF 5,000 UNIT/0.5 ML SYRINGE SQ SCH ×2 (09:12→19:46)
[2022-02-02] MEDS: lisinopriL 10 MG TAB PO SCH (09:13)
[2022-02-02] MEDS: ATORVASTATIN 80 MG TAB PO SCH (09:13)
[2022-02-02] MEDS: FAMOTIDINE 20 MG TAB PO SCH ×2 (09:13→19:46)
[2022-02-02] MEDS: TICAGRELOR 90 MG TAB PO SCH ×2 (09:13→19:46)
[2022-02-02] MEDS: METOPROLOL TARTRATE 25 MG TAB PO SCH ×2 (09:13→19:46)
[2022-02-02] MEDS ORDERED: polyethylene glycoL 3350 17 GM POWD.PACK PO STA (10:06)
--- NOTE | 2022-02-02 10:26 | P.PN ---
Subjective This is a pleasant 71 years old male with past medical history of hypertension Presents yesterday because of dyspnea and chest pain.. He has history of recent covid infection about 3 weeks ago. The presents because of chest tightness and burning chest pain over 2 days duration slowly gotten worse so yesterday he decided to come to the hospital Patient underwent emergent cardiac cath and PCI placed to LAD Currently patient denies chest pain or dyspnea, no headache, weakness or numbness, no diarrhea or vomiting or abdominal pain, no dysuria or change in frequency However yesterday he underwent straight cath and a little urine output was obta ined. He does not have any [place]. Vital signs stable Labs unremarkable including CBC, INR, BMP, liver enzymes. D-dimer -0.26. Troponin elevated at 0.07, 2.9, 7.2. EKG showing ectopic atrial rhythm at 83 Chest x-ray: No acute process. Patient underwent emergent cardiac cath with PCI to LAD 02/02/2022 Patient with no chest pain or dyspnea today. Discomfort from constipation and reports sore laxative which is provided with Colace and MiraLAX Also was complaining of from some difficulty with urination and with urgency, they have to straight cath him overnight. However bladder scan this morning looks better. We'll keep checking bladder scan and also we will send urine analysis. Flomax is started and patient was instructed to follow up with her neurologist Dr. Lim as an outpatient and he agrees Objective - Vital Signs Vital signs: Vital Signs Temp 97.8 F 02/02/22 08:00 Pulse 62 02/02/22 08:00 Resp 12 02/02/22 08:00 BP 132/63 02/02/22 08:00 Pulse Ox 100 02/02/22 08:00 FiO2 Intake & Output 02/01/22 02/02/22 02/02/22 18:59 06:59 18:59 Intake Total 125 200 Output Total 1620 725 Balance -1495 -525 Weight 105 kg 105 kg Intake: IV 125 Sodium Chloride 0.9% 1, 125 000 ml @ 0 mls/hr IV .STK -[facility] Rx#:[id number] Oral 200 Output: Urine 920 700 Post Void Residual 700 25 Other: Voiding Method Urinal Urinal Urinal # Bowel Movements 1 1 - Exam GENERAL: The patient is alert and oriented x3, not in any acute distress. Well developed, well nourished. HEENT: Pupils are round and equally reacting to light. EOMI. No scleral icterus. No conjunctival pallor. Normocephalic, atraumatic. No pharyngeal erythema. No thyromegaly. CARDIOVASCULAR: S1 and S2 present. No murmurs, rubs, or gallops. PULMONARY: Chest is clear to auscultation, no wheezing or crackles. ABDOMEN: Soft, nontender, nondistended, normoactive bowel sounds. No palpable organomegaly. MUSCULOSKELETAL: No joint swelling or deformity. EXTREMITIES: No cyanosis, clubbing, or pedal edema. NEUROLOGICAL: Gross neurological examination did not reveal any focal deficits. SKIN: No rashes. no petechiae. - Labs CBC & Chem 7: 02/01/22 06:43 02/01/22 06:43 Labs: Abnormal Lab Results - Last 24 Hours (Table) 02/01/22 Range/Units 06:43 Triglycerides 176.00 H (0.00-149.00) mg/dL HDL Cholesterol 35.20 L (40.00-60.00) mg/dL Assessment and Plan Assessment: Acute non-STEMI status post cardiac cath and PCI to LAD acute urinary retention Hypertension Recent Covid infection with no pneumonia or hypoxia Plan: Continue with dual antiplatelet therapy with aspirin and brillinta Continue with metoprolol and lisinopril Continue with statin Cardiology consult on the case Check bladder scan Start Flomax and check urine analysis Stool softeners Labs and medication were reviewed.. Continue same treatment. Continue with s ymptomatic treatment. Resume home medication. Monitor labs and vitals. DVT and GI prophylaxis. Further recommendations as per clinical course of the patient DVT prophylaxis: Subcutaneous heparin GI Prophylaxis: Pepcid Discussed with patient and he agrees
[2022-02-02] MEDS: TAMSULOSIN 0.4 MG CAP.ER.24H PO SCH (10:51)
[2022-02-02 11:08] LABS: Appearance,Urine Clear (Clear); Bilirubin,Urine Negative (Negative); Blood,Urine Small (Negative); Color,Urine Yellow; Glucose,Urine (UA) Negative (Negative); Ketones,Urine Negative (Negative); Leukocyte Esterase,Urine Negative (Negative); Mucus,Urine Occasional /hpf; Nitrite,Urine Negative (Negative); PH, Urine 5.5 (5.0-8.0); Protein,Urine Negative (Negative); RBC,Urine 20 /hpf (0-5); Specific Gravity,Urine 1.016 (1.001-1.035); Urobilinogen,Urine <2.0 mg/dL (<2.0); WBC,Urine 1 /hpf (0-5)
[2022-02-02] MEDS: DOCUSATE 100 MG CAP PO SCH ×2 (12:35→19:47)
--- NOTE | 2022-02-02 13:12 | PN ---
PROGRESS NOTE HISTORY OF PRESENT ILLNESS: Tylor is a 71-year-old gentleman who was admitted to hospital with acute non-ST- segment elevation [place], underwent cardiac catheterization, angioplasty of the LAD. MEDICATIONS: The patient is currently on, 1. Aspirin. 2. Lipitor. 3. Zestril. 4. Lopressor. 5. Brilinta. He is doing well and is free of symptoms. Echo is still pending this morning. PHYSICAL EXAMINATION: GENERAL: Comfortable at rest. VITAL SIGNS: Stable. NECK: There is no jugular venous distention. CHEST: Reveals good air entry bilaterally. HEART: Reveals first and second heart sounds. No gallop, no murmur. EXTREMITIES: Did not reveal any edema. Peripheral pulses are felt. LABORATORY DATA: I do not have any labs from today. ASSESSMENT AND PLAN: Acute non-ST segment elevation myocardial infarction, status post catheterization and angioplasty. Continue current medications and followup the 2D echo results. MMODL / IJN: [id number] /
[2022-02-02 15:44] VITALS: TEMP 97.7
--- NOTE | 2022-02-02 20:52 | CA ---
Transthoracic Echo Report Name: Tylor Palacios Age: 71 Gender: M : 1950 Exam Date: 02/02/2022 08:45 Exam Location: [facility] Ht (in): 72 Wt (lb): 231 Ordering Physician: Ivan Hughes DO Attending/Referring Phys: Ivan Hughes DO [facility] Teacher Luda Nath RDCS Procedure CPT: Indications: post heart cath Cardiac Hx: Pt is post casth. Technical Quality: Technically difficult study Contrast 1: Lumason Total Dose (mL): Contrast 2: Total Dose (mL): MEASUREMENTS (Male / Female) Normal Values 2D ECHO LV Diastolic Diameter PLAX 4.5 cm 4.2 - 5.9 / 3.9 - 5.3 cm LV Systolic Diameter PLAX 3.4 cm IVS Diastolic Thickness 1.2 cm 0.6 - 1.0 / 0.6 - 0.9 cm LVPW Diastolic Thickness 1.7 cm 0.6 - 1.0 / 0.6 - 0.9 cm LV Relative Wall Thickness 0.7 RV Internal Dim ED PLAX 3.3 cm LA Systolic Diameter LX 3.8 cm 3.0 - 4.0 / 2.7 - 3.8 cm M-MODE Aortic Root Diameter MM 3.1 cm LA Systolic Diameter MM 4.4 cm LA Ao Ratio MM 1.4 MV E Point Septal Separation 0.5 cm AV Cusp Separation MM 2.3 cm DOPPLER MV Area PHT 4.0 cm??? Mitral E Point Velocity 43.3 cm/s Mitral A Point Velocity 65.6 cm/s Mitral E to A Ratio 0.7 MV Deceleration Time 191.3 ms FINDINGS Left Ventricle Mildly increased septal wall thickness. Left ventricular ejection fraction is estimated at about 45%. There is hypokinesia of the mid to distal anteroseptal wall as well as the inferoapical portion. Right Ventricle Normal right ventricular size and function. Right Atrium Normal right atrial size. Left Atrium Normal left atrial size. Mitral Valve Structurally normal mitral valve. Mild mitral regurgitation. Aortic Valve Trileaflet aortic valve. Tricuspid Valve Structurally normal tricuspid valve. Mild tricuspid regurgitation. Pulmonic Valve Pulmonic valve not well visualized. Pericardium Normal pericardium. Aorta Normal size aortic root and proximal ascending aorta. CONCLUSIONS Left ventricle size is normal with hypokinesia of the mid to distal anteroseptal as well as the inferoapical portion of the left ventricle. There is mild hypokinesia of the distal anteroapical wall as well. Mild mitral and tricuspid insufficiency. No pericardial effusion. Ejection fraction is about 45% Previewed by: Dr. Kb Warner MD (Electronically Signed) Final Date: 02 February 2022 20:51
[2022-02-03 10:24] VITALS: BP 113/74; PULSE 75; RESP 16
[2022-02-03] MEDS: lisinopriL 10 MG TAB PO SCH (10:25)
[2022-02-03] MEDS: HEPARIN SODIUM,PORCINE/PF 5,000 UNIT/0.5 ML SYRINGE SQ SCH (10:25)
[2022-02-03] MEDS: FAMOTIDINE 20 MG TAB PO SCH (10:25)
[2022-02-03] MEDS: ASPIRIN 81 MG PO SCH (10:25)
[2022-02-03] MEDS: METOPROLOL TARTRATE 25 MG TAB PO SCH (10:25)
[2022-02-03] MEDS: ATORVASTATIN 80 MG TAB PO SCH (10:25)
[2022-02-03] MEDS: DOCUSATE 100 MG CAP PO SCH (10:26)
[2022-02-03] MEDS: TAMSULOSIN 0.4 MG CAP.ER.24H PO SCH (10:26)
[2022-02-03] MEDS: TICAGRELOR 90 MG TAB PO SCH (10:26)
--- NOTE | 2022-02-03 20:28 | PN ---
PROGRESS NOTE HISTORY OF PRESENT ILLNESS: Tylor is a 71-year-old gentleman who is admitted to hospital with acute non-ST segment elevation ID, underwent cardiac catheterization, angioplasty of the LAD. This morning, the patient is doing well and is free of symptoms and is ready to be discharged home from cardiac standpoint. An echocardiogram showed an ejection fraction of 45% with hypokinesis involving the [id number] anteroseptal wall and the apex. The patient has had problems with urinary obstruction, currently has an indwelling catheter. PHYSICAL EXAMINATION: GENERAL: Comfortable at rest. VITAL SIGNS: Stable. NECK: There is jugular venous distention. Carotid upstroke is normal. There is no bruit. CHEST: Reveals good air entry bilaterally. HEART: Reveals first and second heart sounds. No gallop. No murmur. ABDOMEN: Soft. EXTREMITIES: Did not reveal any edema. Peripheral pulses are felt. MEDICATIONS: The patient is currently on, 1. Aspirin 81 mg daily. 2. Lipitor 80 mg daily. 3. Zestril 10 daily. 4. Lopressor 25 b.i.d. 5. Brilinta. ASSESSMENT AND PLAN: Acute non-ST segment elevation myocardial infarction, status post catheterization and angioplasty of left anterior descending. The patient is doing well and he is ready to be discharged home. MMODL / IJN: [id number] /
--- NOTE | 2022-02-03 23:28 | P.DS ---
Providers Date of admission: 01/31/22 16:05 Attending physician: Ronald Quinn MD Consults: 01/31/22 16:05 Consult Physician Urgent Consulting Provider: Satya Hylton Consult Reason/Comments: stemi Do you want consulting provider notified?: Already Contacted 01/31/22 17:28 Consult Physician Routine Consulting Provider: [facility] Consult Reason/Comments: Post Interventional Patient Do you want consulting provider notified?: Already Contacted Primary care physician: Stated None Hospital Course: Diagnoses: Acute non-STEMI status post cardiac cath and PCI to LAD acute urinary retention, status post Israel catheter Hypertension Recent Covid infection with no pneumonia or hypoxia Hospital course: This is a pleasant 71 years old male with past medical history of hypertension Presents because of dyspnea and chest pain.. He has history of recent covid infection about 3 weeks ago. The presents because of chest tightness and burning chest pain over 2 days duration . Patient found to have non-STEMI, he status post PCI to LAD by finishing range operator. Patient importance of dual antiplatelet therapy with aspirin and brillinta are explained for him with risks benefits also explained for him details and he verbalized understanding and acceptance. Physical therapy evaluation recommended home area Patient with evidence of urinary retention, Flomax is started, recommendation for outpatient follow-up with Dr. Lim is explained for him and he verbalized understanding and acceptance to call and make his own appointment. Other than that patient's feels his back to baseline and was to go home today. He denies chest pain or dyspnea. No change in urine or bowel habits. No fever. Patient was cleared for discharge by finishing range operator. Problems and management plan were discussed with the patient and he verbalized understanding and acceptance Patient was found stable and can be discharged home in guarded prognosis however he needs follow-up as an outpatient. Patient was instructed to follow up with PCP within one week and patient agrees (patient states that he has no PCP and went to the [facility] PCP for his within one week as instructed, other than that he was informed to call his health insurance provider to find nearby PCP and he agrees) Also patient was instructed to follow up with finishing range operator Dr. Hylton in one week and he agrees patient instructed to follow up with Dr. Lim within one week and he agrees to call and make an appointment Physical exam Gen: patient is a AAOx3, no distress CVS: S1-S2, RRR, no murmur Lungs: B/L CTA, no wheezing Abdomen: soft, no distention, no tenderness, positive bowel sounds Extremity: no leg edema or induration. Israel catheter in place Time spent more than 35 minutes Patient Condition at Discharge: Serious Plan - Discharge Summary Discharge Rx Participant: Yes New Discharge Prescriptions: New Tamsulosin [Flomax] 0.4 mg PO PC-BRKFST #30 cap Metoprolol Tartrate [Lopressor] 25 mg PO BID #60 tab Nitroglycerin Sl Tabs [Nitrostat] 0.4 mg SUBLINGUAL Q5M PRN #20 tab PRN Reason: Chest Pain Aspirin 81 mg PO DAILY #30 tab Ticagrelor [Brilinta] 90 mg PO BID #60 tab Atorvastatin [Lipitor] 80 mg PO DAILY #30 tab Acetaminophen Tab [Tylenol] 650 mg PO Q6HR PRN tab PRN Reason: Fever And/ Or Pain Continue lisinopriL [Zestril] 10 mg PO DAILY #30 tab Albuterol Inhaler [Ventolin Hfa Inhaler] 2 puff INHALATION RT-Q4H PRN PRN Reason: Wheezing Discharge Medication List Albuterol Inhaler [Ventolin Hfa Inhaler] 2 puff INHALATION RT-Q4H PRN 01/31/22 [History] Acetaminophen Tab [Tylenol] 650 mg PO Q6HR PRN tab 02/03/22 [Rx] Aspirin 81 mg PO DAILY #30 tab 02/03/22 [Rx] Atorvastatin [Lipitor] 80 mg PO DAILY #30 tab 02/03/22 [Rx] Metoprolol Tartrate [Lopressor] 25 mg PO BID #60 tab 02/03/22 [Rx] Nitroglycerin Sl Tabs [Nitrostat] 0.4 mg SUBLINGUAL Q5M PRN #20 tab 02/03/22 [Rx] Tamsulosin [Flomax] 0.4 mg PO PC-BRKFST #30 cap 02/03/22 [Rx] Ticagrelor [Brilinta] 90 mg PO BID #60 tab 02/03/22 [Rx] lisinopriL [Zestril] 10 mg PO DAILY #30 tab 02/03/22 [Rx] Follow up Appointment(s)/Referral(s): None,Stated [Primary Care Provider] - 1-2 days Satya Hylton MD [STAFF PHYSICIAN] - 2 Weeks Jose R Gamez MD [STAFF PHYSICIAN] - 1 Week (Urologist for Israel catheter. Office will contact you with appointment date and time.) Patient Instructions/Handouts: *[facility] - After Heart Catheterization - A mbulatory Care Instructions, Metoprolol (By mouth), Lisinopril (By mouth), Aspirin (By mouth), Nitroglycerin, Rapid Release (By mouth), Atorvastatin (By mouth), Tamsulosin (By mouth), Ticagrelor (By mouth), Urinary Retention in Men (GEN), Heart Healthy Diet (DC), Israel Catheter Placement and Care (DC), Urinary Leg Bag (GEN), Coronary Intravascular Stent Placement (DC) Activity/Diet/Wound Care/Special Instructions: heart healthy diet activity is restricted till you see your doctor Discharge Disposition: HOME WITH HOME HEALTH SERVICES
== END 2022-02-03 11:47 | disposition home health service (06) | DRG 247 ==
LOC: EC 15:15 → 2SICU 16:05 → 3SCARD 02-02 11:20
PROVIDERS: ADMIT Internal Medicine; ATTEND Internal Medicine
PROC: B2111ZZ Fluoroscopy of Multiple Coronary Arteries using Low Osmolar Contrast (ICD-10-PCS; 2022-01-31)
PROC: 027034Z Dilation of Coronary Artery, One Artery with Drug-eluting Intraluminal Device, Percutaneous Approach (ICD-10-PCS; principal; 2022-01-31 16:11)
PROC: 4A023N7 Measurement of Cardiac Sampling and Pressure, Left Heart, Percutaneous Approach (ICD-10-PCS; 2022-01-31 16:11)
DX: I21.3 ST elevation (STEMI) myocardial infarction of unspecified site (principal); I45.2 Bifascicular block; I10 Essential (primary) hypertension; I08.1 Rheumatic disorders of both mitral and tricuspid valves; K59.00 Constipation, unspecified; N13.9 Obstructive and reflux uropathy, unspecified; R33.9 Retention of urine, unspecified; I25.119 Atherosclerotic heart disease of native coronary artery with unspecified angina pectoris; R39.15 Urgency of urination; Z86.16 Personal history of COVID-19; Z79.899 Other long term (current) drug therapy
CPT/HCPCS: 36415; 71045; 80053; 80061; 81001; 82565; 83735; 83880; 84484; 85025; 85379; 85610; 85730; 93005; 93306; 93458; 99291

== ENCOUNTER 2022-02-03 19:04 | Emergency (ER) | payer MEDICARE ==
[2022-02-03 20:58] VITALS: BP 119/70; PULSE 78; RESP 18; TEMP 97.8
--- NOTE | 2022-02-03 21:30 | ED ---
Male Urogenital HPI - General Chief complaint: Urogenital Stated complaint: Cath Problem Time Seen by Provider: 02/03/22 21:23 Source: patient, RN notes reviewed Mode of arrival: ambulatory Limitations: no limitations - History of Present Illness Initial comments: This is a pleasant 71-year-old male who presents to the emergency department concerning his indwelling Sirael catheter which he had placed yesterday. Patient states that he emptied the leg bag and then noticed that the urine was staying in the tube. He was somewhat concerned. Patient denying any discomfort other than feeling like he has to urinate all the time as expected with a Israel catheter. Patient had a left groin approach yesterday for cardiac catheter with stenting. States that the site is doing well. He denies any pain in this area. No swelling. No headache, no fever or chills, no changes in vision or hearing, no sore throat or difficulty with speech, no neck pain, no chest pain or shortness of breath, no abdominal pain, no nausea or vomiting, no changes in urination or bowel movements, no numbness or tingling, no extremity pain, no skin rashes or les ions. Past medical, surgical, social, and family history reviewed. - Related Data Home Medications Medication Instructions Recorded Confirmed Albuterol Inhaler [Ventolin Hfa 2 puff INHALATION RT-Q4H PRN 01/31/22 01/31/22 Inhaler] Previous Rx's Medication Instructions Recorded Acetaminophen Tab [Tylenol] 650 mg PO Q6HR PRN tab 02/03/22 Aspirin 81 mg PO DAILY #30 tab 02/03/22 Atorvastatin [Lipitor] 80 mg PO DAILY #30 tab 02/03/22 Metoprolol Tartrate [Lopressor] 25 mg PO BID #60 tab 02/03/22 Nitroglycerin Sl Tabs [Nitrostat] 0.4 mg SUBLINGUAL Q5M PRN #20 tab 02/03/22 Tamsulosin [Flomax] 0.4 mg PO PC-BRKFST #30 cap 02/03/22 Ticagrelor [Brilinta] 90 mg PO BID #60 tab 02/03/22 lisinopriL [Zestril] 10 mg PO DAILY #30 tab 02/03/22 Allergies Allergy/AdvReac Type Severity Reaction Status Date / Time No Known Allergies Allergy Verified 02/03/22 20:59 Review of Systems ROS Statement: Those systems with pertinent positive or pertinent negative responses have been documented in the HPI. ROS Other: All systems not noted in ROS Statement are negative. Past Medical History Past Medical History: Hypertension History of Any Multi-Drug Resistant Organisms: None Reported Past Surgical History: Hernia Repair Additional Past Surgical History / Comment(s): hernia operation, cardiac stent Past Psychological History: No Psychological Hx Reported Smoking Status: Never smoker Past Alcohol Use History: Rare Past Drug Use History: None Reported General Exam - General Exam Comments Initial Comments: Patient does not appear to be ill or toxic. Limitations: no limitations General appearance: alert, in no apparent distress Head exam: Present: atraumatic, normocephalic, normal inspection Eye exam: Present: normal appearance, PERRL, EOMI. Absent: scleral icterus, conjunctival injection, periorbital swelling ENT exam: Present: normal exam, mucous membranes moist Neck exam: Present: normal inspection, full ROM, lymphadenopathy Respiratory exam: Present: normal lung sounds bilaterally. Absent: respiratory distress, wheezes, rales, rhonchi, stridor Cardiovascular Exam: Present: regular rate, normal rhythm, normal heart sounds. Absent: systolic murmur, diastolic murmur, rubs, gallop, clicks GI/Abdominal exam: Present: soft. Absent: distended, tenderness, guarding, rebound, rigid exam: Present: vertical testicular lie, circumcision, other ([place] catheter in place. No abnormality at the cardiac catheter site in the left groin. No evidence of hematoma.). Absent: testicular tenderness, urethral discharge, scrotal swelling Extremities exam: Present: normal inspection, full ROM, normal capillary refill. Absent: tenderness, pedal edema, joint swelling, calf tenderness Back exam: Present: normal inspection Neurological exam: Present: alert, oriented X3, CN II-XII intact Psychiatric exam: Present: normal affect, normal mood Skin exam: Present: warm, dry, intact, normal color. Absent: rash Course Vital Signs 02/03/22 20:53 Temperature 97.8 F Pulse Rate 78 Respiratory 18 Rate Blood Pressure 119/70 O2 Sat by Pulse 97 Oximetry Medical Decision Making - Medical Decision Making Patient's Israel catheter was draining well. No evidence of blood or blockage. Patient had no discomfort. Patient was nervous about the catheter after he emptied the bag. Patient states that for a while the urine seemed to be staying in the tube but now is draining. Patient has no abnormality at the cardiac catheterization site in the left groin. While the patient follow-up with urology on Monday as planned. Patient was told to return to the ER for any signs or symptoms worsen. Told to return immediately if any other problems arise. All questions answered. Treatment plan discussed. Patient in agreement Every effort has been made to ensure accuracy of this dictation. However, due to the limitations of electronic medical records and dictation devices, errors in charting still occur. Supervising physician Dr. Gonzalez Disposition Clinical Impression: Israel catheter problem Disposition: HOME SELF-CARE Condition: Good Instructions (If sedation given, give patient instructions): Israel Catheter Placement and Care (ED) Additional Instructions: Follow-up with your regular physician as directed. Return to the ER immediately if any symptoms worsen, new symptoms arise, or any other problems develop. Is patient prescribed a controlled substance at d/c from ED?: No Referrals: None,Stated [Primary Care Provider] - 1-2 days Time of Disposition: 21:30
== END 2022-02-03 21:48 | disposition home or self-care (01) ==
LOC: EC 19:04
DX: T83.091A Other mechanical complication of indwelling urethral catheter, initial encounter (principal); I10 Essential (primary) hypertension; Z79.82 Long term (current) use of aspirin; Z79.899 Other long term (current) drug therapy
CPT/HCPCS: 51702; 99283

== ENCOUNTER 2022-02-07 22:23 | Observation (INO) | payer MEDICARE ==
[2022-02-07 23:05] LABS: Basophils # (A) 0.1 k/uL (0-0.2); Basophils % (A) 1 %; Eosinophils # (A) 0.2 k/uL (0-0.7); Eosinophils % (A) 2 %; HCT 40.2 % (39.0-53.0); HGB 13.9 gm/dL (13.0-17.5); Lymphocytes # (A) 1.6 k/uL (1.0-4.8); Lymphocytes % (A) 20 %; MCHC 34.5 g/dL (31.0-37.0); MCV 95.6 fL (80.0-100.0); Mean Platelet Volume 9.5; Monocytes # (A) 0.8 k/uL (0-1.0); Monocytes % (A) 10 %; Neutrophils # (A) 5.3 k/uL (1.3-7.7); Neutrophils % (A) 65 %; Platelet Count 176 k/uL (150-450); RBC 4.21 m/uL (4.30-5.90); RDW 12.3 % (11.5-15.5); WBC 8.2 k/uL (3.8-10.6)
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
[2022-02-07 23:16] LABS: Ionized Calcium 5.9 mg/dL (4.5-5.3)
[2022-02-07 23:20] LABS: Partial Thromboplastin Time 25.3 sec (22.0-30.0); Prothrombin Time 10.5 sec (9.0-12.0)
[2022-02-07 23:30] LABS: ALT 14 U/L (4-49); AST 36 U/L (17-59); African American GFR (CKD) >90 (>60 ml/min/1.73 sqM); Albumin 4.2 g/dL (3.5-5.0); Alkaline Phosphatase 95 U/L (38-126); Anion Gap 8 mmol/L; Blood Urea Nitrogen 17 mg/dL (9-20); Calcium 10.5 mg/dL (8.4-10.2); Carbon Dioxide 26 mmol/L (22-30); Chloride 103 mmol/L (98-107); Glucose 117 mg/dL (74-99); Magnesium 1.9 mg/dL (1.6-2.3); Non-African American GFR(CKD) 88 (>60 ml/min/1.73 sqM); Potassium 4.2 mmol/L (3.5-5.1); Sodium 137 mmol/L (137-145); Total Bilirubin 0.7 mg/dL (0.2-1.3); Total Protein 7.4 g/dL (6.3-8.2)
[2022-02-07 23:47] LABS: Appearance,Urine Clear (Clear); Bilirubin,Urine Negative (Negative); Blood,Urine Large (Negative); Color,Urine Yellow; Glucose,Urine (UA) Negative (Negative); Ketones,Urine Negative (Negative); Leukocyte Esterase,Urine Large (Negative); Nitrite,Urine Negative (Negative); PH, Urine 5.5 (5.0-8.0); Protein,Urine Trace (Negative); RBC,Urine >182 /hpf (0-5); Specific Gravity,Urine 1.014 (1.001-1.035); Urobilinogen,Urine <2.0 mg/dL (<2.0); WBC,Urine 128 /hpf (0-5)
--- NOTE | 2022-02-08 00:30 | CT ---
EXAMINATION TYPE: CT chest angio for PE DATE OF EXAM: 02/08/2022 COMPARISON: None HISTORY: Elevated D-dimer, heart stent x [address] DLP: 640.8 mGycm Automated exposure control for dose reduction was used. CONTRAST: Performed with IV Contrast, patient injected with 70ml mL of Isovue 370. Images obtained from the thoracic inlet to the diaphragm with the IV contrast there are Three-D postp rocessed images. The lungs are clear of infiltrate. No pleural effusion or pneumothorax. Heart size is normal. No sary cardial effusion. There are small hiatal hernia. The stomach is intact. Liver and spleen are intact. There are numerous bilateral renal cortical cysts. No pancreatic mass. There are no hilar masses. There is no mediastinal adenopathy. Thoracic aorta is intact. No aneurysm or dissection. No filling defect in the pulmonary arteries. IMPRESSION: Negative exam. No evidence of pulmonary embolism.
[2022-02-08] MEDS ORDERED: cefTRIAXone IN SWFI 1,000 MG/10 ML SYRINGE IVP STA (00:40)
[2022-02-08] MEDS ORDERED: ONDANSETRON 4 MG/2 ML VIAL IVP PRN (01:35)
[2022-02-08] MEDS ORDERED: NALOXONE 0.4 MG/ML 1 ML VIAL IV PRN (01:35)
[2022-02-08] MEDS ORDERED: ALBUTEROL NEBULIZED 2.5 MG/3 ML INHALATION PRN (06:46)
[2022-02-08] MEDS ORDERED: NITROGLYCERIN SL TABS 0.4 MG TAB SUBLINGUAL PRN (06:46)
--- NOTE | 2022-02-08 07:22 | P.HPIM ---
History of Present Illness This is a pleasant 71 years old male with past medical history of coronary artery disease, status post stent placement Hypertension Presents because of malaise fatigue for about one week. He has his Rosenbaum catheter removed today. He has a bladder scan showing 700 mL of urine Patient was recently discharged from the hospital on 02/03 for non- STEMI where he had the stent placed into his LAD. At that time he had urinary retention and Rosenbaum catheter has to be placed Presents today because of generalized weakness he went to see his urologist for the first time dr palmer who took the urine catheter out but when he came to the hospital he has urinary retention again in the ED And rosenbaum catheter was reinserted again , pt denies suprapubic pain or tenderness. Patient denies chest pain or dyspnea or other complaints, no coughing, no diarrhea or vomiting or headache or weakness numbness or dizziness. Vitas looks stable Labs show an unremarkable CBC, INR 1.0, d-dimer 0.67 but the patient is 71 years old His BMP is unremarkable. Calcium 10.5, magnesium 1.9, troponin 0.05. Urine analysis is suspicious for infection CTA of the chest, no pulmonary embolism EKG shows sinus bradycardia at [address] T changes Emergency room patient was started on ceftriaxone Review of Systems Review of systems CONSTITUTIONAL: No fever, no malaise, no fatigue. HEENT: No recent visual problems or hearing problems. Denied any sore throat. CARDIOVASCULAR: No orthopnea, PND, no palpitations, no syncope. PULMONARY: No shortness of breath, no cough, no hemoptysis. GASTROINTESTINAL: No diarrhea, no nausea, no vomiting, no abdominal pain. Normoactive bowel sounds. NEUROLOGICAL: No headaches, no weakness, no numbness. HEMATOLOGICAL: Denies any bleeding or petechiae. GENITOURINARY: Denies any burning micturition, frequency, or urgency. MUSCULOSKELETAL/RHEUMATOLOGICAL: Denies any joint pain, swelling, or any muscle pain. ENDOCRINE: Denies any polyuria or polydipsia. Past Medical History Past Medical History: Coronary Artery Disease (CAD), Chest Pain / Angina, Hypertension History of Any Multi-Drug Resistant Organisms: None Reported Past Surgical History: Heart Catheterization, Heart Catheterization With Stent, Hernia Repair Additional Past Surgical History / Comment(s): hernia operation, cardiac stent Past Psychological History: No Psychological Hx Reported Smoking Status: Never smoker Past Alcohol Use History: Rare Past Drug Use History: None Reported Medications and Allergies Home Medications Medication Instructions Recorded Confirmed Type Albuterol Inhaler [Ventolin Hfa 2 puff INHALATION RT-Q4H PRN 01/31/22 01/31/22 History Inhaler] Acetaminophen Tab [Tylenol] 650 mg PO Q6HR PRN tab 02/03/22 Rx Aspirin 81 mg PO DAILY #30 tab 02/03/22 Rx Atorvastatin [Lipitor] 80 mg PO DAILY #30 tab 02/03/22 Rx Metoprolol Tartrate [Lopressor] 25 mg PO BID #60 tab 02/03/22 Rx Nitroglycerin Sl Tabs [Nitrostat] 0.4 mg SUBLINGUAL Q5M PRN #20 tab 02/03/22 Rx Tamsulosin [Flomax] 0.4 mg PO PC-BRKFST #30 cap 02/03/22 Rx Ticagrelor [Brilinta] 90 mg PO BID #60 tab 02/03/22 Rx lisinopriL [Zestril] 10 mg PO DAILY #30 tab 02/03/22 Rx Allergies Allergy/AdvReac Type Severity Reaction Status Date / Time No Known Allergies Allergy Verified 02/03/22 20:59 Physical Exam Vitals: Vital Signs Temp Pulse Resp BP Pulse Ox 02/08/22 04:59 98.2 F 58 L 16 120/62 98 02/08/22 00:25 97.8 F 59 L 20 141/63 97 02/07/22 22:28 98 F 63 16 144/69 99 Intake and Output 02/07/22 02/07/22 02/08/22 14:59 22:59 06:59 Other: Weight 104.326 kg GENERAL: The patient is alert and oriented x3, not in any acute distress. Well developed, well nourished. HEENT: Pupils are round and equally reacting to light. EOMI. No scleral icterus. No conjunctival pallor. Normocephalic, atraumatic. No pharyngeal erythema. No thyromegaly. CARDIOVASCULAR: S1 and S2 present. No murmurs, rubs, or gallops. PULMONARY: Chest is clear to auscultation, no wheezing or crackles. -ABDOMEN: Soft, nontender, nondistended, normoactive bowel sounds. No palpable organomegaly. Rosenbaum catheter in place MUSCULOSKELETAL: No joint swelling or deformity. EXTREMITIES: No cyanosis, clubbing, or pedal edema. NEUROLOGICAL: Gross neurological examination did not reveal any focal deficits. SKIN: No rashes. no petechiae. Results CBC & Chem 7: 02/07/22 22:40 02/07/22 22:40 Labs: Abnormal Lab Results - Last 24 Hours (Table) 02/07/22 02/07/22 02/07/22 Range/Units 22:40 22:40 22:40 RBC 4.21 L (4.30-5.90) m/uL D-Dimer 0.67 H (<0.60) mg/L FEU Glucose 117 H (74-99) mg/dL Calcium 10.5 H (8.4-10.2) mg/dL Ionized Calcium Oscar 5.9 H (4.5-5.3) mg/dL Troponin I (0.000-0.034) ng/mL Urine Protein (Negative) Urine Blood (Negative) Ur Leukocyte Esterase (Negative) Urine RBC (0-5) /hpf Urine WBC (0-5) /hpf 02/07/22 02/07/22 Range/Units 22:40 23:21 RBC (4.30-5.90) m/uL D-Dimer (<0.60) mg/L FEU Glucose (74-99) mg/dL Calcium (8.4-10.2) mg/dL Ionized Calcium Oscar (4.5-5.3) mg/dL Troponin I 0.053 H* (0.000-0.034) ng/mL Urine Protein Trace H (Negative) Urine Blood Large H (Negative) Ur Leukocyte Esterase Large H (Negative) Urine RBC >182 H (0-5) /hpf Urine WBC 128 H (0-5) /hpf Assessment and Plan Assessment: Acute urinary tract infection, related to Rosenbaum catheter Urinary retention status post Rosenbaum catheter Hypertension Recent non-STEMI status post PCI to LAD recent history of cough with infection Plan: Continue with ceftriaxone, follow-up urine culture Continue with Rosenbaum catheter neurology consult Cardiology consult Continue with aspirin and Plavix because of infection patient is contrast in the emergency room were going to give gentle hydration for 12 hours Labs and medication were reviewed.. Continue same treatment. Continue with symptomatic treatment. Resume home medication. Monitor labs and vitals. DVT and GI prophylaxis. Further recommendations as per clinical course of the patient DVT prophylaxis: Subcutaneous heparin GI Prophylaxis: Pepcid PT/OT: Pending Prognosis is guarded
[2022-02-08] MEDS ORDERED: SODIUM CHLORIDE 0.9% 1,000 ML IV SCH (07:30)
[2022-02-08] MEDS: ASPIRIN 81 MG PO SCH (09:06)
[2022-02-08] MEDS: ATORVASTATIN 80 MG TAB PO SCH (09:06)
[2022-02-08] MEDS: METOPROLOL TARTRATE 25 MG TAB PO SCH ×2 (09:06→21:19)
[2022-02-08] MEDS: TAMSULOSIN 0.4 MG CAP.ER.24H PO SCH (09:06)
[2022-02-08] MEDS: TICAGRELOR 90 MG TAB PO SCH ×2 (09:06→21:19)
[2022-02-08] MEDS: SODIUM CHLORIDE 0.9% 1,000 ML IV SCH (09:07)
[2022-02-08] MEDS: HEPARIN SODIUM,PORCINE/PF 5,000 UNIT/0.5 ML SYRINGE SQ SCH ×2 (09:12→16:17)
--- NOTE | 2022-02-08 10:52 | P.GSCN ---
History of Present Illness Consult date: 02/08/22 Reason for Consult: Urinary retention Requesting physician: Narayan Ruiz History of present illness: This is a pleasant 71-year-old male who presented to the emergency department on 02/07/22 with complaints of fatigue, some shakiness, irritability, and some lightheadedness. The patient was recently discharged from the hospital on 02/03/22 for a non-STEMI where he had a stent placed into his LAD. At that time he had urinary retention and a Israel catheter was placed. The patient was discharged home with his Israel catheter. He was on Flomax 0.4 mg at home. He followed up as directed with our office and his Israel catheter was removed by Dr. Wynn yesterday. The patient was unable to fully and was bladder scanned in the emergency department for 700 mL. A Israel catheter had to be placed. His UA is suspicious for a UTI. A urine culture is pending. The patient has been started on Rocephin. Review of Systems - Constitutional Reports fatigue, Denies chills, Denies fever - EENT Ears, nose, mouth and throat: Denies headache - Cardiovascular Denies chest pain, Denies shortness of breath - Gastrointestinal Denies abdominal pain, Denies nausea, Denies vomiting - Genitourinary Reports urinary retention - Integumentary Denies rash Past Medical History Past Medical History: Coronary Artery Disease (CAD), Chest Pain / Angina, Hypertension History of Any Multi-Drug Resistant Organisms: None Reported Past Surgical History: Heart Catheterization, Heart Catheterization With Stent, Hernia Repair Additional Past Surgical History / Comment(s): hernia operation, cardiac stent Past Psychological History: No Psychological Hx Reported Smoking Status: Never smoker Past Alcohol Use History: Rare Past Drug Use History: None Reported Medications and Allergies Home Medications Medication Instructions Recorded Confirmed Type Albuterol Inhaler [Ventolin Hfa 2 puff INHALATION RT-Q4H PRN 01/31/22 02/08/22 History Inhaler] Acetaminophen Tab [Tylenol] 650 mg PO Q6HR PRN tab 02/03/22 02/08/22 Rx Aspirin 81 mg PO DAILY #30 tab 02/03/22 02/08/22 Rx Atorvastatin [Lipitor] 80 mg PO DAILY #30 tab 02/03/22 02/08/22 Rx Metoprolol Tartrate [Lopressor] 25 mg PO BID #60 tab 02/03/22 02/08/22 Rx Nitroglycerin Sl Tabs [Nitrostat] 0.4 mg SUBLINGUAL Q5M PRN #20 tab 02/03/22 02/08/22 Rx Tamsulosin [Flomax] 0.4 mg PO PC-BRKFST #30 cap 02/03/22 02/08/22 Rx Ticagrelor [Brilinta] 90 mg PO BID #60 tab 02/03/22 02/08/22 Rx lisinopriL [Zestril] 10 mg PO DAILY #30 tab 02/03/22 02/08/22 Rx Allergies Allergy/AdvReac Type Severity Reaction Status Date / Time No Known Allergies Allergy Verified 02/08/22 07:55 Surgical - Exam Vital Signs Temp Pulse Resp BP Pulse Ox 98 F 63 16 144/69 99 02/07/22 22:28 02/07/22 22:28 02/07/22 22:28 02/07/22 22:28 02/07/22 22:28 General: Well developed, well nourished. No acute distress. HEENT: Head is atraumatic, normocephalic. Lungs: Respirations even and nonlabored. On RA Abdomen/GI: Soft. Non-distended, No guarding, rigidity, or abdominal tenderness. : No suprapubic tenderness. Israel catheter draining light pink urine Skin: Warm and dry Neurologic: Awake, alert and oriented times 3. CN II-XII grossly intact. No focal deficits. Psychiatric: Appropriate mood and affect. Results - Labs 02/07/22 22:40 02/07/22 22:40 Abnormal Lab Results - Last 24 Hours (Table) 02/07/22 02/07/22 02/07/22 Range/Units 22:40 22:40 22:40 RBC 4.21 L (4.30-5.90) m/uL D-Dimer 0.67 H (<0.60) mg/L FEU Glucose 117 H (74-99) mg/dL Calcium 10.5 H (8.4-10.2) mg/dL Ionized Calcium Oscar 5.9 H (4.5-5.3) mg/dL Troponin I (0.000-0.034) ng/mL Urine Protein (Negative) Urine Blood (Negative) Ur Leukocyte Esterase (Negative) Urine RBC (0-5) /hpf Urine WBC (0-5) /hpf 02/07/22 02/07/22 02/08/22 Range/Units 22:40 23:21 05:17 RBC (4.30-5.90) m/uL D-Dimer (<0.60) mg/L FEU Glucose (74-99) mg/dL Calcium (8.4-10.2) mg/dL Ionized Calcium Oscar (4.5-5.3) mg/dL Troponin I 0.053 H* 0.047 H* (0.000-0.034) ng/mL Urine Protein Trace H (Negative) Urine Blood Large H (Negative) Ur Leukocyte Esterase Large H (Negative) Urine RBC >182 H (0-5) /hpf Urine WBC 128 H (0-5) /hpf Microbiology - Last 24 Hours (Table) 02/07/22 23:21 Urine Culture - Preliminary Urine,Voided Diabetes panel 02/07/22 Range/Units 22:40 Sodium 137 (137-145) mmol/L Potassium 4.2 (3.5-5.1) mmol/L Chloride 103 (98-107) mmol/L Carbon Dioxide 26 (22-30) mmol/L BUN 17 (9-20) mg/dL Creatinine 0.87 (0.66-1.25) mg/dL Glucose 117 H (74-99) mg/dL Calcium 10.5 H (8.4-10.2) mg/dL AST 36 (17-59) U/L ALT 14 (4-49) U/L Alkaline Phosphatase 95 (38-126) U/L Total Protein 7.4 (6.3-8.2) g/dL Albumin 4.2 (3.5-5.0) g/dL Thyroid panel 02/07/22 Range/Units 22:40 TSH 2.680 (0.465-4.680) mIU/L Calcium panel 02/07/22 Range/Units 22:40 Calcium 10.5 H (8.4-10.2) mg/dL Ionized Calcium Oscar 5.9 H (4.5-5.3) mg/dL Albumin 4.2 (3.5-5.0) g/dL Pituitary panel 02/07/22 Range/Units 22:40 Sodium 137 (137-145) mmol/L Potassium 4.2 (3.5-5.1) mmol/L Chloride 103 (98-107) mmol/L Carbon Dioxide 26 (22-30) mmol/L BUN 17 (9-20) mg/dL Creatinine 0.87 (0.66-1.25) mg/dL Glucose 117 H (74-99) mg/dL Calcium 10.5 H (8.4-10.2) mg/dL TSH 2.680 (0.465-4.680) mIU/L Adrenal panel 02/07/22 Range/Units 22:40 Sodium 137 (137-145) mmol/L Potassium 4.2 (3.5-5.1) mmol/L Chloride 103 (98-107) mmol/L Carbon Dioxide 26 (22-30) mmol/L BUN 17 (9-20) mg/dL Creatinine 0.87 (0.66-1.25) mg/dL Glucose 117 H (74-99) mg/dL Calcium 10.5 H (8.4-10.2) mg/dL Total Bilirubin 0.7 (0.2-1.3) mg/dL AST 36 (17-59) U/L ALT 14 (4-49) U/L Alkaline Phosphatase 95 (38-126) U/L Total Protein 7.4 (6.3-8.2) g/dL Albumin 4.2 (3.5-5.0) g/dL Assessment and Plan Assessment: The patient is resting on a stretcher in the emergency department. His son is present. The patient states he dos not have a history of retention prior to his last hospitalization. He denies any prior surgeries to his bladder or kidney. He reports feeling lightheaded and dizzy. WBC 8.2, serum creatinine 0.87. The patient is afebrile, his vitals are stable, and he is on room air. He denies any pain at this time. (1) Urinary retention Current Visit: Yes Status: Acute Code(s): R33.9 - RETENTION OF URINE, UNSPEC IFIED SNOMED Code(s): 371524742 Plan: - Awaiting final urine culture - Continue Rocephin - Keep Israel catheter x 2 weeks - Continue Flomax for now Impression and plan of care have been directed as dictated by the signing physician. Lenka Peña nurse practitioner acting as scribe for signing physician. Lenka Peña [facility] Palliative Care/[facility] [id number] Email: [email or web address]
--- NOTE | 2022-02-08 11:08 | P.CRDCN ---
History of Present Illness History of present illness: HISTORY OF PRESENTING ILLNESS This is a pleasant 71-year-old male past medical history significant for coronary artery disease, recent NSTEMI 01/31/2022 s/p PCI to mid LAD, hypertension, dyslipidemia. He follows with Dr. Hylton. We have been asked to see in consultation for generalized weakness, recent cardiac cath/[place]. When he was discarged on 02/03/2022 he was discharged with a rosenbaum catheter. He had a follow up appointment with urology and his Rosenbaum catheter was removed. He's been having symptoms of generalized fatigue, shakiness, chills, bodyaches. No documented fevers. He was found to have a urinary tract infection is being treated for that. Troponins were drawn in the ER and mildly elevated. Patient without symptoms of chest pain or shortness of breath. He states after his stent placement he has had no further chest pain or shortness of breath. He states he has been symptom free since his stent placement. DIAGNOSTICS * EKG reveals sinus bradycardia, heart rate 58, T wave inversions in inferior and V2-V5. * Telemetry tracings indicate sinus rhythm * CTA with no pulmonary embolism reported * Cardiac catheterization 01/31/2022 revealed 95% stenosis in the mid LAD, left main free of stenosis, circumflex is free of significant disease, RCA without any significant stenosis. Patient underwent PCI of LAD * Echocardiogram 01/23/2022 revealed EF of 45%, mild hypokinesia of the distal anterior apical wall, mild mitral regurgitation, mild tricuspid regurgitation * Laboratory reviewed, CBC unremarkable, d-dimer 0.67, troponin 0.05, 0.04, 0.04, sodium 137, potassium 4.2, BUN 17, serum creatinine 0.8, proBNP 190 * Current home cardiac medications include aspirin, Brilinta, lisinopril, metoprolol titrate, atorvastatin. REVIEW OF SYSTEMS At the time of my exam: CONSTITUTIONAL: Denies fever or chills. CARDIOVASCULAR: Denies chest pain, shortness of breath, orthopnea, PND or palpitations. RESPIRATORY: Denies cough. GASTROINTESTINAL: Denies abdominal pain, diarrhea, constipation, nausea or vomiting. MUSCULOSKELETAL: Denies myalgias. NEUROLOGIC: Denies numbness, tingling, headacbe or weakness. ENDOCRINE: Denies fatigue, weight change, polydipsia or polyurina. GENITOURINARY: Denies burning, hematuria or urgency with micturation. HEMATOLOGIC: Denies history of anemia or bleeding. PHYSICAL EXAMINATION Blood pressure 133/60, heart rate 70, afebrile, saturations 98% on room air CONSTITUTIONAL: No apparent distress. HEENT: Head is normocephalic. Pupils are equal, round. Sclerae anicteric. Mucous membranes of the mouth are moist. No JVD. No carotid bruit. CHEST EXAMINATION: Lungs are clear to auscultation. No chest wall tenderness is noted on palpation or with deep breathing. HEART EXAMINATION: Regular rate and rhythm. S1, S2 heard. No murmurs, gallops or rub. ABDOMEN: Soft, nontender. Positive bowel sounds. EXTREMITIES: 2+ peripheral pulses, no lower extremity edema and no calf tenderness. NEUROLOGIC EXAMINATION: Patient is awake, alert and oriented x3. ASSESSMENT Symptoms of generalized fatigue, chills, body aches secondary to UTI Urinary tract infection Recent rosenbaum catheter removal by urology outpatient Elevated troponin, downtrending from recent stenting, not consistent with acute coronary syndrome. Patient without chest pain. No acute changes on EKG. Ischemic cardiomyopathy with mildly reduced ejection fraction of 45% Coronary artery disease, recent NSTEMI 01/31/2022 s/p PCI to mid LAD Hypertension Dyslipidemia PLAN Urinary tract infection treatment and rosenbaum catheter management per primary Continue home cardiac medications with dual antiplatelet therapy with aspirin and Brilinta, high intensity statin, beta dixon, lisinopril No further changes from a cardiology perspective at this time Nurse practitioner note has been reviewed by physician. Signing provider agrees with the documented findings, assessment, and plan of care. Past Medical History Past Medical History: Coronary Artery Disease (CAD), Chest Pain / Angina, Hypertension History of Any Multi-Drug Resistant Organisms: None Reported Past Surgical History: Heart Catheterization, Heart Catheterization With Stent, Hernia Repair Additional Past Surgical History / Comment(s): hernia operation, cardiac stent Past Psychological History: No Psychological Hx Reported Smoking Status: Never smoker Past Alcohol Use History: Rare Past Drug Use History: None Reported Medications and Allergies Home Medications Medication Instructions Recorded Confirmed Type Albuterol Inhaler [Ventolin Hfa 2 puff INHALATION RT-Q4H PRN 01/31/22 02/08/22 History Inhaler] Acetaminophen Tab [Tylenol] 650 mg PO Q6HR PRN tab 02/03/22 02/08/22 Rx Aspirin 81 mg PO DAILY #30 tab 02/03/22 02/08/22 Rx Atorvastatin [Lipitor] 80 mg PO DAILY #30 tab 02/03/22 02/08/22 Rx Metoprolol Tartrate [Lopressor] 25 mg PO BID #60 tab 02/03/22 02/08/22 Rx Nitroglycerin Sl Tabs [Nitrostat] 0.4 mg SUBLINGUAL Q5M PRN #20 tab 02/03/22 02/08/22 Rx Tamsulosin [Flomax] 0.4 mg PO PC-BRKFST #30 cap 02/03/22 02/08/22 Rx Ticagrelor [Brilinta] 90 mg PO BID #60 tab 02/03/22 02/08/22 Rx lisinopriL [Zestril] 10 mg PO DAILY #30 tab 02/03/22 02/08/22 Rx Allergies Allergy/AdvReac Type Severity Reaction Status Date / Time No Known Allergies Allergy Verified 02/08/22 07:55 Physical Exam Vitals: Vital Signs Temp Pulse Resp BP Pulse Ox 02/08/22 04:59 98.2 F 58 L 16 120/62 98 02/08/22 00:25 97.8 F 59 L 20 141/63 97 02/07/22 22:28 98 F 63 16 144/69 99 Intake and Output 02/07/22 02/08/22 02/08/22 22:59 06:59 14:59 Other: Weight 104.326 kg Results 02/07/22 22:40 02/07/22 22:40 Cardiac Enzymes 02/07/22 02/07/22 02/08/22 Range/Units 22:40 22:40 05:17 AST 36 (17-59) U/L Troponin I 0.053 H* 0.047 H* (0.000-0.034) ng/mL Coagulation 02/07/22 Range/Units 22:40 PT 10.5 (9.0-12.0) sec APTT 25.3 (22.0-30.0) sec CBC 02/07/22 Range/Units 22:40 WBC 8.2 (3.8-10.6) k/uL RBC 4.21 L (4.30-5.90) m/uL Hgb 13.9 (13.0-17.5) gm/dL Hct 40.2 (39.0-53.0) % Plt Count 176 (150-450) k/uL Comprehensive Metabolic Panel 02/07/22 Range/Units 22:40 Sodium 137 (137-145) mmol/L Potassium 4.2 (3.5-5.1) mmol/L Chloride 103 (98-107) mmol/L Carbon Dioxide 26 (22-30) mmol/L BUN 17 (9-20) mg/dL Creatinine 0.87 (0.66-1.25) mg/dL Glucose 117 H (74-99) mg/dL Calcium 10.5 H (8.4-10.2) mg/dL AST 36 (17-59) U/L ALT 14 (4-49) U/L Alkaline Phosphatase 95 (38-126) U/L Total Protein 7.4 (6.3-8.2) g/dL Albumin 4.2 (3.5-5.0) g/dL Current Medications Generic Name Dose Route Start Last Admin Trade Name Freq PRN Reason Stop Dose Admin Acetaminophen 650 mg 02/08/22 01:35 Acetaminophen Tab 325 Mg Tab PO Q6HR PRN Mild Pain or Fever > 100.5 Albuterol Sulfate 2.5 mg 02/08/22 06:46 Albuterol Nebulized 2.5 Mg/3 Ml INHALATION RT-Q4H PRN Wheezing Aspirin 81 mg 02/08/22 09:00 Aspirin 81 Mg PO DAILY ROSARIO Atorvastatin Calcium 80 mg 02/08/22 09:00 Atorvastatin 80 Mg Tab PO DAILY ROSARIO Heparin Sodium (Porcine) 5,000 unit 02/08/22 08:00 Heparin Sodium,Porcine/Pf 5,000 Unit/0.5 Ml Syringe SQ Q8HR ROSARIO Sodium Chloride 1,000 mls @ 20 mls/hr 02/08/22 01:45 Saline 0.9% IV .Q24H ROSARIO Ceftriaxone Sodium 1 gm/ 50 mls @ 100 mls/hr 02/08/22 09:00 Sodium Chloride IVPB Q24HR [facility] Protocol Sodium Chloride 1,000 mls @ 75 mls/hr 02/08/22 07:30 Saline 0.9% IV 02/08/22 19:31 .[id number] ROSARIO Metoprolol Tartrate 25 mg 02/08/22 09:00 Metoprolol Tartrate 25 Mg Tab PO BID ROSARIO Naloxone HCl 0.2 mg 02/08/22 01:35 Naloxone 0.4 Mg/Ml 1 Ml Vial IV Q2M PRN Opioid Reversal Nitroglycerin 0.4 mg 02/08/22 06:46 Nitroglycerin Sl Tabs 0.4 Mg Tab SUBLINGUAL Q5M PRN Chest Pain Ondansetron HCl 4 mg 02/08/22 01:35 Ondansetron 4 Mg/2 Ml Vial IVP Q8HR PRN Nausea And Vomiting Tamsulosin HCl 0.4 mg 02/08/22 08:30 Tamsulosin 0.4 Mg Cap.Er.24h PO PC-BRKFST ROSARIO Ticagrelor 90 mg 02/08/22 09:00 Ticagrelor 90 Mg Tab PO BID [facility] Intake and Output 02/07/22 02/08/22 02/08/22 22:59 06:59 14:59 Other: Weight 104.326 kg 02/07/22 22:40 02/07/22 22:40
[2022-02-08] MEDS: ACETAMINOPHEN TAB 325 MG TAB PO PRN (16:17)
[2022-02-09] MEDS: HEPARIN SODIUM,PORCINE/PF 5,000 UNIT/0.5 ML SYRINGE SQ SCH ×3 (00:19→16:32)
[2022-02-09] MEDS: SODIUM CHLORIDE 0.9% 1,000 ML IV SCH (04:20)
[2022-02-09 07:35] LABS: Basophils % (A) 0 %; Eosinophils # (A) 0.2 k/uL (0-0.7); Eosinophils % (A) 3 %; HCT 41.1 % (39.0-53.0); Lymphocytes # (A) 1.5 k/uL (1.0-4.8); Lymphocytes % (A) 20 %; MCH 32.5 pg (25.0-35.0); MCHC 33.9 g/dL (31.0-37.0); MCV 95.8 fL (80.0-100.0); Monocytes # (A) 0.7 k/uL (0-1.0); Monocytes % (A) 10 %; Neutrophils # (A) 4.8 k/uL (1.3-7.7); Neutrophils % (A) 64 %; Platelet Count 178 k/uL (150-450); RBC 4.29 m/uL (4.30-5.90); RDW 12.3 % (11.5-15.5); WBC 7.5 k/uL (3.8-10.6)
[2022-02-09 07:52] LABS: African American GFR (CKD) >90 (>60 ml/min/1.73 sqM); Anion Gap 7 mmol/L; Blood Urea Nitrogen 14 mg/dL (9-20); Calcium 10.5 mg/dL (8.4-10.2); Carbon Dioxide 26 mmol/L (22-30); Chloride 107 mmol/L (98-107); Glucose 87 mg/dL (74-99); Magnesium 1.9 mg/dL (1.6-2.3); Non-African American GFR(CKD) 89 (>60 ml/min/1.73 sqM); Potassium 4.4 mmol/L (3.5-5.1); Sodium 140 mmol/L (137-145)
[2022-02-09] MEDS: ATORVASTATIN 80 MG TAB PO SCH (08:54)
[2022-02-09] MEDS: lisinopriL 10 MG TAB PO SCH (08:54)
[2022-02-09] MEDS: TAMSULOSIN 0.4 MG CAP.ER.24H PO SCH (08:54)
[2022-02-09] MEDS: METOPROLOL TARTRATE 25 MG TAB PO SCH ×2 (08:54→21:05)
[2022-02-09] MEDS: TICAGRELOR 90 MG TAB PO SCH ×2 (08:54→21:04)
[2022-02-09] MEDS: ASPIRIN 81 MG PO SCH (08:54)
[2022-02-09] MEDS: FAMOTIDINE 20 MG/2 ML VIAL IV SCH ×2 (08:55→21:05)
--- NOTE | 2022-02-09 09:29 | P.PN ---
Subjective Progress Note Date: 02/09/22 Principal diagnosis: Urinary retention This is a pleasant 71-year-old male who presented to the emergency department on 02/07/22 with complaints of fatigue, some shakiness, irritability, and some lightheadedness. The patient was recently discharged from the hospital on 02/03/22 for a non-STEMI where he had a stent placed into his LAD. At that time he had urinary retention and a Israel catheter was placed. The patient was discharged home with his Israel catheter. He was on Flomax 0.4 mg at home. He followed up as directed with our office and his Israel catheter was removed by Dr. Wynn yesterday. The patient was unable to fully and was bladder scanned in the emergency department for 700 mL. A Israel catheter had to be placed. His UA is suspicious for a UTI. A urine culture is pending. The patient has been started on Rocephin. Objective - Vital Signs Vital signs: Vital Signs Temp 97.3 F L 02/09/22 08:52 Pulse 68 02/09/22 08:52 Resp 16 02/09/22 08:52 BP 117/71 02/09/22 08:52 Pulse Ox 94 L 02/09/22 08:52 FiO2 Intake & Output 02/08/22 02/09/22 02/09/22 18:59 06:59 18:59 Intake Total 20 240 Output Total 700 1075 Balance -700 -1055 240 Weight 104.326 kg Intake: IV 20 Invasive Line 1 20 Oral 240 Output: Urine 700 1075 Uretheral (Israel) 700 Other: Voiding Method Indwelling Catheter Indwelling Catheter - Exam General: Well developed, well nourished. No acute distress. HEENT: Head is atraumatic, normocephalic. Lungs: Respirations even and nonlabored. On RA Abdomen/GI: Soft. Non-distended, No guarding, rigidity, or abdominal tenderness. : No suprapubic tenderness. Israel catheter draining clear yellow urine Skin: Warm and dry Neurologic: Awake, alert and oriented times 3. CN II-XII grossly intact. No focal deficits. Psychiatric: Appropriate mood and affect. - Labs CBC & Chem 7: 02/09/22 07:16 02/09/22 07:16 Labs: Abnormal Lab Results - Last 24 Hours (Table) 02/08/22 02/09/22 02/09/22 Range/Units 10:22 07:16 07:16 RBC 4.29 L (4.30-5.90) m/uL Calcium 10.5 H (8.4-10.2) mg/dL Troponin I 0.045 H* (0.000-0.034) ng/mL Microbiology - Last 24 Hours (Table) 02/07/22 23:21 Urine Culture - Preliminary Urine,Voided Assessment and Plan Assessment: The patient is resting comfortably in bed. He is afebrile, vitals are stable, and he is on room air. His WBC is 7.5, serum creatinine is 0.83 today. Urine culture is pending. His Israel catheter is draining clear yellow urine. Due to the patient feeling lightheaded and dizzy, we will not increase his Flomax. We will add Proscar to his regimen. However, it will take proximately 6 months to shrink his prostate. He should be discharge with his Israel catheter and have it removed in our office. The patient states he already has an appointment scheduled for 02/18/22. (1) Urinary retention Current Visit: Yes Status: Acute Code(s): R33.9 - RETENTION OF URINE, UNSPECIFIED SNOMED Code(s): 998467165 Plan: - Awaiting final urine culture - Continue Rocephin - Keep Israel catheter, when medically cleared for discharge he should be sent home with his Israel - Follow up in our office for Israel catheter removal - Continue Flomax for now - Add Proscar Impression and plan of care have been directed as dictated by the signing physi cian. Lenka Peña nurse practitioner acting as scribe for signing physician. Lenka Peña [facility]- Palliative Care/Urology [facility] [id number] Email: [email or web address]
--- NOTE | 2022-02-09 10:25 | P.PN ---
Subjective This is a pleasant 71-year-old male past medical history significant for coronary artery disease, recent NSTEMI 01/31/2022 s/p PCI to mid LAD, hypert ension, dyslipidemia. He follows with Dr. Hylton. We have been asked to see in consultation for generalized weakness, recent cardiac cath/[place]. When he was discarged on 02/03/2022 he was discharged with a rosenbaum catheter. He had a follow up appointment with urology and his Rosenbaum catheter was removed. He's been having symptoms of generalized fatigue, shakiness, chills, bodyaches. No documented fevers. He was found to have a urinary tract infection is being treated for that. Troponins were drawn in the ER and mildly elevated. Patient without symptoms of chest pain or shortness of breath. He states after his stent placement he has had no further chest pain or shortness of breath. He states he has been symptom free since his stent placement. DIAGNOSTICS * Cardiac catheterization 01/31/2022 revealed 95% stenosis in the mid LAD, left main free of stenosis, circumflex is free of significant disease, RCA without any significant stenosis. Patient underwent PCI of LAD * Echocardiogram 01/23/2022 revealed EF of 45%, mild hypokinesia of the distal anterior apical wall, mild mitral regurgitation, mild tricuspid regurgitation 02/09/2022 Patient seen and examined at bedside, no acute distress. Denies any chest pain or shortness of breath. Vital signs are stable. He is maintaining sinus mecha nism on the monitor. His cardiac medications have been resumed. Neurology is following the patient. Currently being treated for a UTI PHYSICAL EXAMINATION Vitals reviewed CONSTITUTIONAL: No apparent distress. HEENT: Head is normocephalic. Pupils are equal, round. Sclerae anicteric. Mucous membranes of the mouth are moist. No JVD. No carotid bruit. CHEST EXAMINATION: Lungs are clear to auscultation. No chest wall tenderness is noted on palpation or with deep breathing. HEART EXAMINATION: Regular rate and rhythm. S1, S2 heard. No murmurs, gallops or rub. ABDOMEN: Soft, nontender. Positive bowel sounds. EXTREMITIES: 2+ peripheral pulses, no lower extremity edema and no calf tenderness. NEUROLOGIC EXAMINATION: Patient is awake, alert and oriented x3. ASSESSMENT Symptoms of generalized fatigue, chills, body aches secondary to UTI Urinary tract infection Recent rosenbaum catheter removal by urology outpatient Elevated troponin, downtrending from recent stenting, not consistent with acute coronary syndrome. Patient without chest pain. No acute changes on EKG. Ischemic cardiomyopathy with mildly reduced ejection fraction of 45% Coronary artery disease, recent NSTEMI 01/31/2022 s/p PCI to mid LAD Hypertension Dyslipidemia PLAN Urinary tract infection treatment and rosenbaum catheter management per primary Continue home cardiac medications with dual antiplatelet therapy with aspirin and Brilinta, high intensity statin, beta dixon, lisinopril No further changes from a cardiology perspective at this time Please reconsult if needed. Patient with follow-up with Dr. Hylton on 02/14 Nurse practitioner note has been reviewed by physician. Signing provider agrees with the documented findings, assessment, and plan of care. Objective - Vital Signs Vital signs: Vital Signs Temp 97.3 F L 02/09/22 08:52 Pulse 68 02/09/22 08:52 Resp 16 02/09/22 08:52 BP 117/71 02/09/22 08:52 Pulse Ox 94 L 02/09/22 08:52 FiO2 Intake & Output 02/08/22 02/09/22 02/09/22 18:59 06:59 18:59 Intake Total 20 240 Output Total 700 1075 275 Balance -700 -1055 -35 Weight 104.326 kg Intake: IV 20 Invasive Line 1 20 Oral 240 Output: Urine 700 1075 275 Uretheral (Rosenbaum) 700 Other: Voiding Method Indwelling Catheter Indwelling Catheter - Labs CBC & Chem 7: 02/09/22 07:16 02/09/22 07:16 Labs: Abnormal Lab Results - Last 24 Hours (Table) 02/08/22 02/09/22 02/09/22 Range/Units 10:22 07:16 07:16 RBC 4.29 L (4.30-5.90) m/uL Calcium 10.5 H (8.4-10.2) mg/dL Troponin I 0.045 H* (0.000-0.034) ng/mL Microbiology - Last 24 Hours (Table) 02/07/22 23:21 Urine Culture - Preliminary Urine,Voided
[2022-02-09] MEDS: FINASTERIDE 5 MG TAB PO SCH (10:59)
[2022-02-09] MEDS: ACETAMINOPHEN TAB 325 MG TAB PO PRN ×2 (13:58→21:03)
--- NOTE | 2022-02-09 16:21 | P.PN ---
Subjective This is a pleasant 71 years old male with past medical history of coronary artery disease, status post stent placement Hypertension Presents because of malaise fatigue for about one week. He has his Rosenbaum catheter removed today. He has a bladder scan showing 700 mL of urine Patient was recently discharged from the hospital on 02/03 for non- STEMI where he had the stent placed into his LAD. At that time he had urinary retention and Rosenbaum catheter has to be placed Presents today because of generalized weakness he went to see his urologist for the first time dr palmer who took the urine catheter out but when he came to the hospital he has urinary retention again in the ED And rosenbaum catheter was reinserted again , pt denies suprapubic pain or tenderness. Patient denies chest pain or dyspnea or other complaints, no coughing, no diarrhea or vomiting or headache or weakness numbness or dizziness. Vitas looks stable Labs show an unremarkable CBC, INR 1.0, d-dimer 0.67 but the patient is 71 years old His BMP is unremarkable. Calcium 10.5, magnesium 1.9, troponin 0.05. Urine analysis is suspicious for infection CTA of the chest, no pulmonary embolism EKG shows sinus bradycardia at [address] T changes Emergency room patient was started on ceftriaxone 02/09/2022 Patient with no chest pain and automatic seamer recommended no further workup. No other cardiology symptoms. Patient remains on aspirin and Brilinta He remains also on Rocephin for UTI, urologist evaluated the patient and recommended to keep Rosenbaum catheter 2 week, patient informed and he agrees. Urine culture is negative. We going to repeat the urine analysis Possible discharge in 24-48 hours if he keeps improving and remains stable Objective - Vital Signs Vital signs: Vital Signs Temp 97.3 F L 02/09/22 08:52 Pulse 68 02/09/22 08:52 Resp 16 02/09/22 08:52 BP 117/71 02/09/22 08:52 Pulse Ox 94 L 02/09/22 08:52 FiO2 Intake & Output 02/08/22 02/09/22 02/09/22 18:59 06:59 18:59 Intake Total 20 240 Output Total 700 1075 275 Balance -700 -1055 -35 Weight 104.326 kg Intake: IV 20 Invasive Line 1 20 Oral 240 Output: Urine 700 1075 275 Uretheral (Rosenbaum) 700 Other: Voiding Method Indwelling Catheter Indwelling Catheter - Exam GENERAL: The patient is alert and oriented x3, not in any acute distress. Well developed, well nourished. HEENT: Pupils are round and equally reacting to light. EOMI. No scleral icterus. No conjunctival pallor. Normocephalic, atraumatic. No pharyngeal erythema. No thyromegaly. CARDIOVASCULAR: S1 and S2 present. No murmurs, rubs, or gallops. PULMONARY: Chest is clear to auscultation, no wheezing or crackles. -ABDOMEN: Soft, nontender, nondistended, normoactive bowel sounds. No palpable organomegaly. Rosenbaum catheter in a Place MUSCULOSKELETAL: No joint swelling or deformity. EXTREMITIES: No cyanosis, clubbing, or pedal edema. NEUROLOGICAL: Gross neurological examination did not reveal any focal deficits. SKIN: No rashes. no petechiae. - Labs CBC & Chem 7: 02/09/22 07:16 02/09/22 07:16 Labs: Abnormal Lab Results - Last 24 Hours (Table) 02/09/22 02/09/22 Range/Units 07:16 07:16 RBC 4.29 L (4.30-5.90) m/uL Calcium 10.5 H (8.4-10.2) mg/dL Microbiology - Last 24 Hours (Table) 02/07/22 23:21 Urine Culture - Final Urine,Voided Assessment and Plan Assessment: Acute urinary tract infection, related to Rosenbaum catheter Urinary retention status post Rosenbaum catheter Hypertension Recent non-STEMI status post PCI to LAD recent history of cough with infection Plan: Continue with ceftriaxone, follow-up repeat UA Continue with Rosenbaum catheter neurology consult 2 weeks and patient informed and he agrees Cardiology consult, no further workup Continue with aspirin and brillinta Labs and medication were reviewed.. Continue same treatment. Continue with symptomatic treatment. Resume home medication. Monitor labs and vitals. DVT and GI prophylaxis. Further recommendations as per clinical course of the patient DVT prophylaxis: Subcutaneous heparin GI Prophylaxis: Pepcid PT/OT: Pending Prognosis is guarded
[2022-02-09 17:40] LABS: Appearance,Urine Clear (Clear); Bacteria,Urine Rare /hpf; Bilirubin,Urine Negative (Negative); Blood,Urine Large (Negative); Color,Urine Yellow; Glucose,Urine (UA) Negative (Negative); Ketones,Urine Negative (Negative); Leukocyte Esterase,Urine Moderate (Negative); Mucus,Urine Rare /hpf; Nitrite,Urine Negative (Negative); PH, Urine 6.5 (5.0-8.0); Protein,Urine Trace (Negative); RBC,Urine >182 /hpf (0-5); Specific Gravity,Urine 1.019 (1.001-1.035); Urobilinogen,Urine <2.0 mg/dL (<2.0); WBC,Urine 11 /hpf (0-5)
[2022-02-09] MEDS ORDERED: MELATONIN 5 MG TABLET PO PRN (20:39)
[2022-02-10] MEDS: HEPARIN SODIUM,PORCINE/PF 5,000 UNIT/0.5 ML SYRINGE SQ SCH ×2 (00:14→08:38)
[2022-02-10] MEDS: SODIUM CHLORIDE 0.9% 1,000 ML IV SCH (05:15)
[2022-02-10 07:55] LABS: Basophils % (A) 0 %; Eosinophils # (A) 0.2 k/uL (0-0.7); Eosinophils % (A) 2 %; HCT 42.7 % (39.0-53.0); HGB 14.4 gm/dL (13.0-17.5); Lymphocytes # (A) 1.6 k/uL (1.0-4.8); Lymphocytes % (A) 20 %; MCH 32.5 pg (25.0-35.0); MCHC 33.7 g/dL (31.0-37.0); MCV 96.5 fL (80.0-100.0); Mean Platelet Volume 9.1; Monocytes # (A) 0.7 k/uL (0-1.0); Monocytes % (A) 9 %; Neutrophils # (A) 5.4 k/uL (1.3-7.7); Neutrophils % (A) 66 %; Platelet Count 202 k/uL (150-450); RBC 4.43 m/uL (4.30-5.90); RDW 12.3 % (11.5-15.5); WBC 8.1 k/uL (3.8-10.6)
[2022-02-10] MEDS: METOPROLOL TARTRATE 25 MG TAB PO SCH (08:39)
[2022-02-10] MEDS: lisinopriL 10 MG TAB PO SCH (08:39)
[2022-02-10] MEDS: FAMOTIDINE 20 MG/2 ML VIAL IV SCH (08:39)
[2022-02-10] MEDS: TAMSULOSIN 0.4 MG CAP.ER.24H PO SCH (08:39)
[2022-02-10] MEDS: ATORVASTATIN 80 MG TAB PO SCH (08:39)
[2022-02-10] MEDS: FINASTERIDE 5 MG TAB PO SCH (08:39)
[2022-02-10] MEDS: TICAGRELOR 90 MG TAB PO SCH (08:39)
[2022-02-10] MEDS: ASPIRIN 81 MG PO SCH (08:39)
[2022-02-10 08:40] LABS: African American GFR (CKD) >90 (>60 ml/min/1.73 sqM); Anion Gap 11 mmol/L; Blood Urea Nitrogen 16 mg/dL (9-20); Calcium 10.7 mg/dL (8.4-10.2); Carbon Dioxide 23 mmol/L (22-30); Chloride 106 mmol/L (98-107); Glucose 85 mg/dL (74-99); Non-African American GFR(CKD) 89 (>60 ml/min/1.73 sqM); Potassium 4.7 mmol/L (3.5-5.1); Sodium 140 mmol/L (137-145)
[2022-02-10 10:05] VITALS: TEMP 98.1
--- NOTE | 2022-02-10 11:37 | P.PN ---
Subjective Progress Note Date: 02/10/22 Principal diagnosis: Urinary retention This is a pleasant 71-year-old male who presented to the emergency department on 02/07/22 with complaints of fatigue, some shakiness, irritability, and some lightheadedness. The patient was recently discharged from the hospital on 02/03/22 for a non-STEMI where he had a stent placed into his LAD. At that time he had urinary retention and a Israel catheter was placed. The patient was discharged home with his Israel catheter. He was on Flomax 0.4 mg at home. He followed up as directed with our office and his Israel catheter was removed by Dr. Wynn yesterday. The patient was unable to fully and was bladder scanned in the emergency department for 700 mL. A Israel catheter had to be placed. His UA is suspicious for a UTI. A urine culture is pending. The patient has been started on Rocephin. 02/09 The patient is resting comfortably in bed. He is afebrile, vitals are stable, and he is on room air. His WBC is 7.5, serum creatinine is 0.83 today. Urine culture is pending. His Israel catheter is draining clear yellow urine. Due to the patient feeling lightheaded and dizzy, we will not increase his Flomax. We will add Proscar to his regimen. However, it will take proximately 6 months to shrink his prostate. He should be discharge with his Israel catheter and have it removed in our office. The patient states he already has an appointment scheduled for 02/18/22. Objective - Vital Signs Vital signs: Vital Signs Temp 98.1 F 02/10/22 08:00 Pulse 62 02/10/22 09:02 Resp 16 02/10/22 08:00 BP 121/75 02/10/22 08:00 Pulse Ox 98 02/10/22 08:50 FiO2 Intake & Output 02/09/22 02/10/22 02/10/22 18:59 06:59 18:59 Intake Total 240 118 Output Total 675 975 Balance -435 -975 118 Intake: Oral 240 118 Output: Urine 675 975 Other: Voiding Method Indwelling Catheter Indwelling Catheter - Exam General: Well developed, well nourished. No acute distress. HEENT: Head is atraumatic, normocephalic. Lungs: Respirations even and nonlabored. On RA Abdomen/GI: Soft. Non-distended, No guarding, rigidity, or abdominal tenderness. : No suprapubicor abdominal tenderness. Israel catheter draining clear yellow urine Skin: Warm and dry Neurologic: Awake, alert and oriented times 3. CN II-XII grossly intact. No focal deficits. Psychiatric: Appropriate mood and affect. - Labs CBC & Chem 7: 02/10/22 07:17 02/10/22 07:17 Labs: Abnormal Lab Results - Last 24 Hours (Table) 02/09/22 02/10/22 Range/Units 17:18 07:17 Calcium 10.7 H (8.4-10.2) mg/dL Urine Protein Trace H (Negative) Urine Blood Large H (Negative) Ur Leukocyte Esterase Moderate H (Negative) Urine RBC >182 H (0-5) /hpf Urine WBC 11 H (0-5) /hpf Urine Bacteria Rare H (None) /hpf Urine Mucus Rare H (None) /hpf Microbiology - Last 24 Hours (Table) 02/07/22 23:21 Urine Culture - Final Urine,Voided Assessment and Plan Assessment: The patient is sitting on the side of the bed. He states he ate a good breakfast and denies any nausea or vomiting. He was able to ambulate to t he bathroom this morning. His Israel catheter is draining clear yellow urine. Patient is afebrile, VSS, and he is on RA. WBC 8.1, serum creatinine 0.83. Repeat urinalysis from yesterday reviewed. Final report from urine culture without evidence of infection. There is no need to continue antibiotics. The patient should be discharged with his Israel catheter. He has a follow up appointment already scheduled with Dr. Wynn for February 18. His Israel catheter will be removed in the office. (1) Urinary retention Current Visit: Yes Status: Acute Code(s): R33.9 - RETENTION OF URINE, UNSPECIFIED SNOMED Code(s): 823032010 Plan: - Stable to discharge from a urological stand point - Discharge with Israel catheter - Follow up in our office for Israel catheter removal - Continue Flomax for now - Coninue Proscar - No antibiotics needed Impression and plan of care have been directed as dictated by the signing physician. Lenka Peña nurse practitioner acting as scribe for signing phys ician. Lenka Peña [facility] Palliative Care/Urology [place] [phone] Email: [email or web address]
[2022-02-10 11:58] VITALS: BP 107/67; PULSE 59; RESP 15
== END 2022-02-10 13:37 | disposition home or self-care (01) ==
LOC: EC 22:23 → 3SCARD 02-08 01:37
PROVIDERS: ADMIT Hospitalist; ATTEND Hospitalist
DX: N39.0 Urinary tract infection, site not specified (principal); R53.1 Weakness; R77.8 Other specified abnormalities of plasma proteins; E78.5 Hyperlipidemia, unspecified; I10 Essential (primary) hypertension; I25.10 Atherosclerotic heart disease of native coronary artery without angina pectoris; I25.5 Ischemic cardiomyopathy; I25.2 Old myocardial infarction; Z95.5 Presence of coronary angioplasty implant and graft; Z79.82 Long term (current) use of aspirin; Z79.899 Other long term (current) drug therapy; Z79.02 Long term (current) use of antithrombotics/antiplatelets
CPT/HCPCS: 96361; 96366 ×4; 96372 ×4; 96375 ×2; 96376 ×2; 96365; 99285; 51798; 36415; 94640; 93005; 97162; 85379; 83880; 80053; 80048 ×2; 82330; 83735 ×2; 84443; 84484 ×2; 85025 ×3; 85610; 85730; 81001 ×2; 87086; 71275; G0378 ×3; S0138 ×2; J0696 ×3; Q9967; J1644 ×3

== ENCOUNTER → 2022-03-02 | Outpatient (CLI) | payer MEDICARE ==
[2022-03-03 00:05] LABS: African American GFR (CKD) 92.3 (60.0-200.0); Anion Gap 8.8 mmol/L (10.00-18.00); BUN/Creat Ratio 10.61 Ratio (12.00-20.00); Blood Urea Nitrogen 10.2 mg/dL (9.0-27.0); Calcium 10.8 mg/dL (8.7-10.3); Carbon Dioxide 26.9 mmol/L (20.0-27.5); Non-African American GFR(CKD) 79.7 (60.0-200.0)
== END | disposition home or self-care (01) ==
LOC: LABWHC1 14:49
PROVIDERS: ATTEND Internal Medicine Cardiovascular Disease
DX: R42 Dizziness and giddiness (principal)
CPT/HCPCS: 36415; 80048

== ENCOUNTER → 2023-03-29 | Outpatient (CLI) | payer MEDICARE ==
[2023-03-29 15:46] LABS: Appearance,Urine Clear (Clear); Bilirubin,Urine Negative (Negative); Blood,Urine Negative (Negative); Color,Urine Yellow (Yellow); Ketones,Urine Trace (Negative); Nitrite,Urine Negative (Negative); Specific Gravity,Urine 1.019 (1.001-1.030); Urobilinogen,Urine 0.2 E.U./DL
[2023-03-29 15:49] LABS: Basophils # (A) 0.02 X 10*3/uL (0.00-0.10); Basophils % (A) 0.3 %; Eosinophils # (A) 0.11 X 10*3/uL (0.04-0.35); Eosinophils % (A) 1.9 %; HCT 41.5 % (39.6-50.0); HGB 13.5 g/dL (13.0-17.0); Lymphocytes % (A) 31.3 %; MCH 31.6 pg (27.0-32.0); MCHC 32.5 g/dL (32.0-37.0); MCV 97.2 FL (80.0-97.0); Mean Platelet Volume 11.9 FL (9.5-12.2); Monocytes # (A) 0.76 X 10*3/uL (0.20-1.00); Monocytes % (A) 13.2 %; NRBC Per 100 WBC 0 X 10*3/uL (0.00-0.01); Neutrophils # (A) 3.05 X 10*3/uL (1.80-7.70); Neutrophils % (A) 53.1 %; Platelet Count 150 X 10*3/uL (140-440); RBC 4.27 X 10*6/uL (4.40-5.60); RDW 12.5 % (11.5-14.5); WBC 5.75 X 10*3/uL (4.50-10.00)
[2023-03-29 16:00] LABS: BUN/Creat Ratio 15.78 Ratio (12.00-20.00); Blood Urea Nitrogen 14.2 mg/dL (9.0-27.0); Calcium 11.1 mg/dL (8.7-10.3); Carbon Dioxide 26.4 mmol/L (21.6-31.8); Chloride 105 mmol/L (96-109); Glucose 102 mg/dL (70-110); Potassium 4.2 mmol/L (3.5-5.5); Sodium 141 mmol/L (135-145)
[2023-03-29 16:34] LABS: Bacteria,Urine None Seen (None Seen); Calcium Oxalate Crystals,Urine Present (None Seen)
== END | disposition home or self-care (01) ==
LOC: LABPAT 09:47
PROVIDERS: ATTEND Urology
DX: Z01.812 Encounter for preprocedural laboratory examination (principal); N40.1 Benign prostatic hyperplasia with lower urinary tract symptoms
CPT/HCPCS: 36415; 80048; 81001; 85025; 86850; 86900; 86901; 87086

== ENCOUNTER 2023-04-05 05:43 | Day surgery (SDC) | payer MEDICARE ==
--- NOTE | 2023-04-04 10:46 | P.HPIHPCON ---
History of Present Illness H&P Date: 04/04/23 Chief Complaint: BPH This is a 72-year-old male with history of an obstructive urinary symptoms despite medical therapy. Underwent a transrectal ultrasound which showed evidence of an 80 g prostate, and underwent a cystoscopy which confirmed evidence of obstructive prostate. Discussed with him given his symptoms and the size of his prostate the option of a robotic simple prostatectomy versus HoLEP. Risk benefit and rationale of each approach was discussed with him in details. He agreed to proceed with a robotic simple prostatectomy. Aware of the risk which includes but not limited to bleeding, infection, urinary incontinence, erectile dysfunction, discussed potential of persistent overactive bladder symptoms even with surgery. Risk of injury to nearby organs which is also discussed. He understood all the risk and agreed to proceed Consent for Procedure: I have explained the operation/procedure to the patient, including the risks, benefits, side effects, alternative therapies (including not receiving the proposed treatment or service), the likelihood of the patient achieving his/her goals, and potential recuperation problems for the procedure/sedation/analgesia, as well as any blood products, if indicated. I also explained to the patient the risks, benefits and side effects of the alternatives, as well as the risks related to not receiving the proposed procedure, care, treatment, or services. Past Medical History Past Medical History: Coronary Artery Disease (CAD), Chest Pain / Angina, Hyperlipidemia, Hypertension, Prostate Disorder Additional Past Medical History / Comment(s): enlarged prostate History of Any Multi-Drug Resistant Organisms: None Reported Past Surgical History: Heart Catheterization, Heart Catheterization With Stent, Hernia Repair Additional Past Surgical History / Comment(s): hernia operation, cardiac stent Past Anesthesia/Blood Transfusion Reactions: No Reported Reaction Date of Last Stent Placement:: 01/31/22 Smoking Status: Never smoker - Past Family History Brother(s) Family Medical History: Cancer Additional Family Medical History / Comment(s): lymphoma Medications and Allergies Home Medications Medication Instructions Recorded Confirmed Type Acetaminophen Tab [Tylenol] 650 mg PO Q6HR PRN tab 02/03/22 03/29/23 Rx Aspirin 81 mg PO DAILY #30 tab 02/03/22 03/29/23 Rx Finasteride [Proscar] 5 mg PO DAILY #30 tablet 02/09/22 03/29/23 Rx Tamsulosin [Flomax] 0.4 mg PO PC-BRKFST #30 cap 02/10/22 03/29/23 Rx Atorvastatin [Lipitor] 40 mg PO DAILY 03/29/23 03/29/23 History Metoprolol Tartrate [Lopressor] 25 mg PO DAILY 03/29/23 03/29/23 History Allergies Allergy/AdvReac Type Severity Reaction Status Date / Time No Known Allergies Allergy Verified 03/29/23 15:16 Surgical - Exam - General no distress, no pain - Eyes normal ocular movement, no pale - ENT normal nares, normal mucosa - Respiratory normal expansion, normal respiratory effort - Abdomen Abdomen: soft, non tender Assessment and Plan Plan: OR for robotic simple prostatectomy
[~2023-04-05 05:43] MED LIST: HEPARIN SODIUM,PORCINE 5,000 UNIT/ML 1 ML VIAL SQ PRN
[2023-04-05] MEDS ORDERED: ONDANSETRON 4 MG/2 ML VIAL ONE (06:41)
[2023-04-05] MEDS: LACTATED RINGERS 1,000 ML IV SCH ×2 (06:55→07:11)
[2023-04-05] MEDS ORDERED: ONDANSETRON 4 MG/2 ML VIAL IVP ONE (06:55)
[2023-04-05] MEDS ORDERED: LIDOCAINE 1% (10MG/ML) FOR IV START INTRADERMA ONE (06:55)
[2023-04-05] MEDS ORDERED: DEXAMETHASONE SOD PHOSPHATE 4 MG/ML 1 ML VIAL IV ONE (06:55)
[2023-04-05] MEDS ORDERED: HYDROmorphone 0.5 MG/0.5 ML SYRINGE IVP PRN (07:00)
[2023-04-05] MEDS ORDERED: MIDAZOLAM 2 MG/2 ML VIAL IVP ONE (07:17)
[2023-04-05] MEDS ORDERED: ONDANSETRON 4 MG/2 ML VIAL IVP PRN (07:47)
[2023-04-05] MEDS ORDERED: HYDROmorphone 1 MG/ML 1 ML SYRINGE IVP PRN (07:47)
[2023-04-05] MEDS ORDERED: D5-0.45% NACL WITH KCL 20MEQ/L 1,000 ML IV SCH (08:00)
[2023-04-05] MEDS ORDERED: BUPIVACAINE (PF) 0.25% 30 ML VIAL SQ ONE ×2 (08:15)
--- NOTE | 2023-04-05 10:16 | P.OP ---
Date of Procedure: 04/05/23 Preoperative Diagnosis: BPH Postoperative Diagnosis: Same Procedure(s) Performed: Robotic simple prostatectomy Implants: None Anesthesia: STEPHENA Surgeon: Nando Wynn Estimated Blood Loss (ml): 75 Pathology: other (Prostate adenoma) Condition: stable Disposition: PACU Indications for Procedure: This is a 72-year-old male with history of an obstructive urinary symptoms despite medical therapy. Underwent a transrectal ultrasound which showed evidence of an 80 g prostate, and underwent a cystoscopy which confirmed evidence of obstructive prostate. Discussed with him given his symptoms and the size of his prostate the option of a robotic simple prostatectomy versus HoLEP. Risk benefit and rationale of each approach was discussed with him in details. He agreed to proceed with a robotic simple prostatectomy. Aware of the risk which includes but not limited to bleeding, infection, urinary incontinence, erectile dysfunction, discussed potential of persistent overactive bladder symptoms even with surgery. Risk of injury to nearby organs which is also discussed. He understood all the risk and agreed to proceed Description of Procedure: After preoperative antibiotics were started, the patient was taken to the oper ating room. Anesthesia was induced and the patient was placed in a supine position with adequate padding of the pressure points, shoulders, back, legs and arms. He was then prepped and draped in the standard fashion. A critical pause was performed using two patient identifiers. A 16F rosenbaum catheter was placed to gravity drainage. A pneumoperitoneum was obtained using a Veress needle, after pneumoperitoneum was obtained a 8 mm camera port was placed. Under direct vision a 8mm robotic ports was placed lateral to each rectus slightly below the camera port. The left iliac fossa 8mm port was placed. The right conservation assistant right iliac fossa 12mm port and right paramedian 5mm portwere placed. After the patient was placed in the trendelenberg position, the robot was then docked to the 8mm robotic ports and then each robotic arm and tower was checked in relation to the patient's legs and hands to avoid inadvertent compression. The peritoneal cavity was inspected. Adhesions were taken down along the left lower quadrant An inverted U-shaped incision began laterally to the left medial umbilical ligament and extended high across the midline to the right umbilical ligament. The limbs of the "U" extended to the level of the vasa on both sides. We next developed the preperitoneal space and the space of Retzius. Cautery was used to dissected the bladder away from the prostate, the incision was made in close proximity to the prostate, and incision was extended laterally and at this point the plane between the adenoma and the surgical capsule is identified. Both ureteral orifices were identified and neither was injured during the dissection . The adenoma was dissected off of the capsule by combination of blunt dissection and minimum cautery. dissection was initially started along the anterior surface and posterior surface of adenoma, and this was carried laterally. The dissection was carried to the apex, at this point the urethral-prostatic junction was visualized and the prostate was transected at the junction. Prostate adenoma was placed in an endocatch bag . A 9and 6 inch 3-0 V-Lock suture was used to anastomose the urethra and bladder, starting at the 6:00 posterior position. Mucosa was secured in every stitch, to ensure a mucosa to mucosa anastomosis. The stitch was regularly cinched and the anastomosis tightened. . The 20 Fr Rosenbaum catheter was advanced, the bladder filled, and the anastomosis was tested. Anastomsis was watertight at 150 mL. balloon was inflated to 10 mL The robot was undocked. specimen was extracted from the supraumbilical incision. The periumbilical fascia was closed with 1-0-PDS suture in figure of 8 fashion. All ports were closed with a subcuticular 4-0 monocryl and Dermabond. Sponge, instrument, and needle counts were correct at the end of the case x2. The patient tolerated the surgery well and without complication. He awoke without difficulty and was taken to the recovery room in stable condition
--- NOTE | 2023-04-05 16:04 | P.ANPRN ---
Procedure Note - Anesthesia - Nerve Block Performed Bilateral Erector Spinae Single Time Out Performed: Yes Date of Procedure: 04/05/23 Procedure Start Time: :17 Procedure Stop Time: : Location of Patient: PreOp Indication: Acute Post-Operative Pain, Requested by Surgeon Sedation Type: Sedate with meaningful contact maintained Preparation: Sterile Prep Position: Prone Needle Types: Pajunk Needle Gauge: 21 Ultrasound used to visualize needle placement: Yes Ultrasound used to observe medication spread: Yes Blood Aspirated: No Pain Paresthesia on Injection Noted: No Resistance on Injection: Normal Image Stored and Saved: Yes Events: Uneventful and Well Tolerated (Drug-eluting 0.5% 50 cc plus Normal Saline 10 cc plus dexamethasone 4 mg given bilaterally at L1)
[2023-04-05] MEDS: HEPARIN SODIUM,PORCINE 5,000 UNIT/ML 1 ML VIAL SQ SCH ×2 (16:29→23:53)
[2023-04-05] MEDS: D5-0.45% NACL WITH KCL 20MEQ/L 1,000 ML IV SCH ×2 (17:01→23:53)
[2023-04-05] MEDS: KETOROLAC 15 MG/ML 1 ML VIAL IVP SCH ×2 (19:11→23:53)
[2023-04-06] MEDS: KETOROLAC 15 MG/ML 1 ML VIAL IVP SCH ×2 (05:52→11:06)
[2023-04-06] MEDS: D5-0.45% NACL WITH KCL 20MEQ/L 1,000 ML IV SCH (05:53)
--- NOTE | 2023-04-06 07:52 | P.DS ---
Providers Attending physician: Nando Wynn MD Primary care physician: Stated None Hospital Course: This is a 72-year-old male with history of BPH. Underwent robotic simple prostatectomy on April 05. Patient was admitted to the hospital postoperatively. He did well in the postoperative period. He was discharged home on postop day #1, at time of discharge he was tolerating a diet, ambulating, and pain was controlled. He was discharged home with a Israel catheter Plan - Discharge Summary Discharge Rx Participant: No New Discharge Prescriptions: New Sulfamethox-Tmp 800-160Mg [Bactrim DS 800-160 mg] 1 tab PO Q12HR #6 tab Ketorolac [Toradol] 10 mg PO Q6HR PRN #15 tab PRN Reason: Pain No Action Tamsulosin [Flomax] 0.4 mg PO PC-BRKFST #30 cap Metoprolol Tartrate [Lopressor] 25 mg PO DAILY Atorvastatin [Lipitor] 40 mg PO DAILY Aspirin 81 mg PO DAILY #30 tab Acetaminophen Tab [Tylenol] 650 mg PO Q6HR PRN tab PRN Reason: Fever And/ Or Pain Finasteride [Proscar] 5 mg PO DAILY #30 tablet Discharge Medication List Acetaminophen Tab [Tylenol] 650 mg PO Q6HR PRN tab 02/03/22 [Rx] Aspirin 81 mg PO DAILY #30 tab 02/03/22 [Rx] Finasteride [Proscar] 5 mg PO DAILY #30 tablet 02/09/22 [Rx] Tamsulosin [Flomax] 0.4 mg PO PC-BRKFST #30 cap 02/10/22 [Rx] Atorvastatin [Lipitor] 40 mg PO DAILY 03/29/23 [History] Metoprolol Tartrate [Lopressor] 25 mg PO DAILY 03/29/23 [History] Ketorolac [Toradol] 10 mg PO Q6HR PRN #15 tab 04/06/23 [Rx] Sulfamethox-Tmp 800-160Mg [Bactrim DS 800-160 mg] 1 tab PO Q12HR #6 tab 04/06/23 [Rx] Activity/Diet/Wound Care/Special Instructions: No heavy lifting or straining for 4 weeks You can resume your baby aspirin tomorrow Increase your fluid intake, it is normal to have blood in the urine You can discontinue taking the Flomax and the Proscar Start your antibiotics 1 day prior to your follow-up appointment Discharge Disposition: HOME SELF-CARE
[2023-04-06] MEDS: HEPARIN SODIUM,PORCINE 5,000 UNIT/ML 1 ML VIAL SQ SCH (08:52)
[2023-04-06 08:56] VITALS: BP 123/71; RESP 17; TEMP 98.5
[2023-04-06] MEDS ORDERED: ATORVASTATIN 40 MG TAB PO SCH (09:00)
[2023-04-06] MEDS ORDERED: METOPROLOL TARTRATE 25 MG TAB PO SCH (09:00)
[2023-04-06 10:41] VITALS: PULSE 54
== END 2023-04-06 11:13 | disposition home or self-care (01) ==
LOC: OR 05:43 → 4SSUR 10:33 → OR 04-06 11:13
PROVIDERS: ATTEND Urology
DX: N40.0 Benign prostatic hyperplasia without lower urinary tract symptoms (principal); I25.10 Atherosclerotic heart disease of native coronary artery without angina pectoris; I10 Essential (primary) hypertension; E78.5 Hyperlipidemia, unspecified; G89.18 Other acute postprocedural pain; Z79.82 Long term (current) use of aspirin; Z79.899 Other long term (current) drug therapy
CPT/HCPCS: 64999; 55867; J2250; J1644 ×2; J1100; J0690; J2405; J1170; J1885 ×2; J0665; 88307

== ENCOUNTER → 2023-06-09 | Outpatient (CLI) | payer MEDICARE ==
--- NOTE | 2023-06-09 15:59 | CT ---
EXAMINATION TYPE: CT lumbar spine wo con DATE OF EXAM: 06/09/2023 COMPARISON: None HISTORY: Radiculopathy, low back pain, denies injury. CT DLP: 1544.8 mGycm CONTRAST: None TECHNIQUE: CT of the lumbar spine is performed on a spiral scan at 3 mm thick sections. Reconstructed images are performed in the coronal and sagittal planes. FINDINGS: T12-L1: No focal disc herniation or significant disc bulge is evident. No spinal canal stenosis or neural foraminal stenosis is present. L1-L2: No focal disc herniation or significant disc bulge is evident. No spinal canal stenosis or n eural foraminal stenosis is present L2-L3: Bile disc bulge has anterior thecal sac contact. No AP spinal canal stenosis is present. Left foramen is patent. Mild right foraminal narrowing is present. L3-L4: Broad-based disc bulge has mild to moderate anterior thecal sac compression. No AP spinal gigi l stenosis present. Mild ligamentum flavum laxity is present with posterior lateral thecal sac compre ssion. There may be some mild spinal canal narrowing without stenosis.. Moderate right foraminal sten osis is present. L4-L5: Broad-based disc bulges moderate anterior thecal sac flattening. Ligamentum flavum laxity is p resent with significant posterior lateral thecal sac impression. There is moderate to severe foramina l stenosis is. Moderate right foraminal stenosis is present. L5-S1: There is a minimal grade 1 spondylolisthesis of L5 anteriorly on S1. Disc uncovering is presen t. Moderate right foraminal stenosis is present. IMPRESSION: 1. Spinal canal stenosis L4-5 secondary to ligamentum flavum laxity and some mild to moderate broad-b ased disc bulge. 2. Mild spinal canal narrowing at L3-4 secondary to ligamentum flavum laxity and disc bulging. 3. Foraminal narrowing present on the right with mild to moderate narrowing discussed above. 4. Grade 1 spondylolisthesis of L4 anteriorly on L5.
== END | disposition home or self-care (01) ==
LOC: RADCTMAIN 09:07
PROVIDERS: ATTEND Family Medicine
DX: M99.73 Connective tissue and disc stenosis of intervertebral foramina of lumbar region (principal); M43.16 Spondylolisthesis, lumbar region; M48.061 Spinal stenosis, lumbar region without neurogenic claudication; M51.16 Intervertebral disc disorders with radiculopathy, lumbar region; M24.28 Disorder of ligament, vertebrae
CPT/HCPCS: 72131

== ENCOUNTER → 2024-07-01 | Outpatient (CLI) | payer MEDICARE ==
[2024-07-01 16:06] LABS: Phosphorus 2.1 mg/dL (2.4-5.1)
[2024-07-01 16:07] LABS: ALT <5 U/L (10-49); AST 28 U/L (14-35); Albumin 4.2 g/dL (3.8-4.9); Albumin/Globulin Ratio 1.62 Ratio (1.60-3.17); Alkaline Phosphatase 96 U/L (41-126); BUN/Creat Ratio 17.82 Ratio (12.00-20.00); Blood Urea Nitrogen 19.6 mg/dL (9.0-27.0); Calcium 10.7 mg/dL (8.7-10.3); Carbon Dioxide 26.3 mmol/L (21.6-31.8); Chloride 107 mmol/L (96-109); Globulin 2.6 g/dL (1.6-3.3); Glucose 91 mg/dL (70-110); Potassium 4.4 mmol/L (3.5-5.5); Sodium 141 mmol/L (135-145); T4, Free (Free Thyroxine) 1.06 ng/dL (0.80-1.80); Total Bilirubin 1.3 mg/dL (0.3-1.2); Total Protein 6.8 g/dL (6.2-8.2)
== END | disposition home or self-care (01) ==
LOC: LABWHC1 09:06
PROVIDERS: ATTEND Internal Medicine
DX: E55.9 Vitamin D deficiency, unspecified (principal); R79.89 Other specified abnormal findings of blood chemistry
CPT/HCPCS: 36415; 80053; 82306; 83970; 84100; 84439; 84443

== ENCOUNTER → 2024-07-25 | Outpatient (CLI) | payer MEDICARE ==
--- NOTE | 2024-07-25 12:13 | BD ---
EXAMINATION TYPE: Axial Bone Density DATE OF EXAM: 07/25/2024 CLINICAL HISTORY: 73 years old Male. ICD-10 CODE: E2.3 HYPERTHYROIDISM , Additional History: Height: 73.4 Weight: 230 FRAX RISK QUESTIONS: nothing to note here RISK FACTORS hyperthyroidism, heart stint, appendix out, prostate surg, parkinson HISTORY OF: nothing to note here MEDICATIONS: lipisorb, aspirin, parkinson's meds Thyroid Medications: not yet, hyperthyroidism EXAM MEASUREMENTS: Bone mineral densitometry was performed using the [employer] System. Bone mineral density as measured about the Lumbar spine is: ----- L1-L4(G/cm2): 1.174 T Score Values are as follows: ----- L1: 0.6 ----- L2: -0.3 ----- L3: -0.3 ----- L4: -0.3 ----- L1-L4: -0.1 Z Score Values are as follows: ----- L1: 0.2 ----- L2: -0.8 ----- L3: -0.8 ----- L4: -0.8 ----- L1-L4: -0.5 Bone mineral density is his first dexxa study, baseline. Bone mineral density about the R hip (g/cm2): 0.902 Bone mineral density about the L hip (g/cm2): 0.937 T Score values are as follows: -----R Neck: -1.7 -----L Neck: -1.6 -----R Total: -0.8 -----L Total: -0.6 Z Score values are as follows: -----R Neck: -1.3 -----L Neck: -1.2 -----R Total: -1.0 -----L Total: -0.8 Bone mineral density is a baseline study today. FRAX%s: The graph provided illustrates a 8.0% chance for a major osteoporotic fx and a 2.4% chance fo r the hips probability for fx in 10 years time. IMPRESSION: Osteopenia (T Score between -2.5 and -1). There is slightly increased risk of fracture and the patient may be considered for treatment. Re-Screen 2-5 years. NOTE: T-SCORE=SD OF THE YOUNG ADULT MEAN. [facility], , 07/25/2024 12:11 PM
== END | disposition home or self-care (01) ==
LOC: RADBDWWP 08:49
PROVIDERS: ATTEND Internal Medicine
DX: M85.89 Other specified disorders of bone density and structure, multiple sites (principal); E21.3 Hyperparathyroidism, unspecified
CPT/HCPCS: 77080